=== PATIENT | male | born 1970 | race Caucasian/White ===

== ENCOUNTER → 2016-12-07 | Outpatient (CLI) | payer BC ==
[~2016-12-07] MED LIST: AMOX-355 PO; BACL20TA PO; HYDR-3454 PO; LIDO20SO20 PO; OMEP40CA36 PO; PRD20T PO; TRAM50TA2 PO
--- NOTE | 2016-12-07 14:11 | Diagnostic Imaging Report ---
PROCEDURE: MR imaging cervical spine without contrast. TECHNIQUE: Multiplanar, multisequence MR imaging of the cervical spine was performed without contrast. INDICATION: Neck pain. FINDINGS: The alignment of the cervical spine is normal. The vertebral body heights are well maintained. The posterior fossa is unremarkable. The visualized portions of the spinal cord are normal in signal intensity and morphology. At C5-C6, there is some broad-based annular bulging and bilateral uncovertebral joint hypertrophy. This results in effacement of the ventral thecal sac and mild narrowing of the AP diameter of the spinal canal to approximately 10 mm. There is also mild bilateral neuroforaminal encroachment. There is no other focal disc extrusion or spinal stenosis. Soft tissues are unremarkable. IMPRESSION: Broad-based annular bulging at C5-C6 resulting in effacement of the ventral thecal sac and narrowing of the AP diameter of the spinal canal to 10 mm. There is also some bilateral uncovertebral joint hypertrophy with mild bilateral neuroforaminal encroachment. Dictated by: Dictated on workstation # [id number]
== END ==
LOC: RAD 12:48
PROVIDERS: ATTEND Nurse Practitioner
DX: M50.20 Other cervical disc displacement, unspecified cervical region (principal); M47.812 Spondylosis without myelopathy or radiculopathy, cervical region
CPT/HCPCS: 72141

== ENCOUNTER → 2016-12-14 | Outpatient (CLI) | payer BC ==
--- NOTE | 2016-12-14 17:36 | Diagnostic Imaging Report ---
PROCEDURE: MRI left upper extremity without contrast. TECHNIQUE: Multiplanar, multisequence non contrast-enhanced MRI of the left upper extremity was accomplished. 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 Left shoulder pain. FINDINGS: There is some motion artifact present. There is mild impingement at the level of the AC joint. There is some slight abnormal signal seen within the supraspinatus tendon, consistent with tendinosis. No tear is identified. There is a small joint effusion with no fluid seen in the subacromial subdeltoid bursa. No labral tear is evident. There is no muscle mass or edema. There is no acute bony abnormality. IMPRESSION: There is mild rotator cuff impingement and tendinosis of the supraspinatus tendon. No tear is seen. Dictated by: Dictated on workstation # [id number]
== END ==
LOC: RAD 15:54
PROVIDERS: ATTEND Orthopaedic Surgery
DX: M25.512 Pain in left shoulder (principal)
CPT/HCPCS: 73221

== ENCOUNTER → 2017-06-27 | Outpatient (CLI) | payer BC ==
--- NOTE | 2017-06-27 10:30 | Diagnostic Imaging Report ---
INDICATION: Right leg pain. Right leg venous Doppler study was performed in the routine fashion with color flow Doppler and waveform analysis. FINDINGS: The right common femoral vein, superficial femoral vein, popliteal vein and visualized portion of the tibial veins show normal compressibility and venous flow patterns. There is normal augmentation. IMPRESSION: No evidence of deep vein thrombosis of the major veins of the right leg. Dictated by: Dictated on workstation # [id number]
== END ==
LOC: RAD 09:45
PROVIDERS: ATTEND Family Medicine
DX: M79.89 Other specified soft tissue disorders (principal)

== ENCOUNTER → 2017-07-13 | Outpatient (CLI) | payer BC | LOC: CARD 12:29 | PROVIDERS: ATTEND Family Medicine | DX: I10 Essential (primary) hypertension (principal); R01.1 Cardiac murmur, unspecified; R07.9 Chest pain, unspecified ==

== ENCOUNTER 2018-11-20 11:59 | Observation (INO) | payer BC ==
[~2018-11-20] VITALS: Ht 175.3 cm; Wt 120.7 kg
--- NOTE | 2018-11-20 12:10 | ED Chest Pain ---
General Stated Complaint: CP Source: patient Exam Limitations: no limitations History of Present Illness Date Seen by Provider: Nov 20, 2018 Time Seen by Provider: 12:08 Initial Comments To ER with reports of left-sided chest pain described as a pressure. He's had this constant for 3 days and had difficulty sleeping last night because of the pain. Pain is worsened with deep breathing or moving. No shortness of breath and no history of this. He sought care this morning simply because he was tired of the pain, not because it was any worse. While at urgent care he was given 4 baby aspirin and one sublingual nitroglycerin which did alleviate his pain to some degree, reducing it from 9 out of 10 to 6 out of 10. He was noted to have ST seg ment depression in leads V5 and V6. He is a nonsmoker. Nondiabetic. No personal history of heart disease that he is aware, he is unaware of any family history of heart disease. He denies any drug use. Timing/Duration: 2-3 days Severity/Quality: pressure Location: substernal Radiation: no radiation Activities at Onset: none ASA po HOME ENERGY CONSULTANT: Yes NTG SL HOME ENERGY CONSULTANT: Yes Associated Symptoms: No abdominal pain, No back pain, No diaphoresis, No nausea/vomiting, No shortness of breath Allergies and Home Medications Allergies Coded Allergies: No Known Drug Allergies (Verified , 11/15/08) Home Medications Omeprazole 40 Mg Capsule.dr, 40 MG PO BID, (Reported) Patient Home Medication List Home Medication List Reviewed: Yes Review of Systems Review of Systems Constitutional: see HPI EENTM: No Symptoms Reported Respiratory: No Symptoms Reported Cardiovascular: See HPI, Chest Pain Gastrointestinal: No Symptoms Reported Genitourinary: No Symptoms Reported Musculoskeletal: no symptoms reported Skin: no symptoms reported Psychiatric/Neurological: No Symptoms Reported Endocrine: No Symptoms Reported Hematologic/Lymphatic: No Symptoms Reported Past Uxwssik-Deostf-Znoygh Hx Patient Social History Recent Hopitalizations: Yes Seasonal Allergies Seasonal Allergies: Yes Past Medical History Appendectomy Sleep Apnea Currently Using CPAP: No (suppose to but doesn't) Reproductive Disorders: No Physical Exam Vital Signs Vital Signs - First Documented 11/20/18 11/20/18 12:04 12:12 Temp 97.2 Pulse 60 Resp 20 B/P (MAP) 128/72 (90) Pulse Ox 97 O2 Delivery Room Air FiO2 97 Capillary Refill : Height, Weight, BMI Height: 5'10.00" Weight: 257lbs. 3.0oz. 116.111957uu; 36.9 BMI Method: General Appearance: No Apparent Distress, WD/WN HEENT: PERRL/EOMI, TMs Normal Neck: Full Range of Motion, Normal Inspection Respiratory: Lungs Clear, Normal Breath Sounds, No Accessory Muscle Use, No Respiratory Distress, Other (left lateral chest is somewhat tender to palpation he states) Cardiovascular: Regular Rate, Rhythm, Normal Peripheral Pulses Gastrointestinal: Normal Bowel Sounds, Non Tender, Soft Extremity: Normal Capillary Refill, Normal Inspection Neurologic/Psychiatric: Alert, Oriented x3 Skin: Normal Color, Warm/Dry Progress/Results/Core Measures Results/Orders Lab Results Laboratory Tests Test 11/20/18 12:09 Range/Units White Blood Count 5.2 4.3-11.0 10^3/uL Red Blood Count 5.01 4.35-5.85 10^6/uL Hemoglobin 12.9 L 13.3-17.7 G/DL Hematocrit 42 40-54 % Mean Corpuscular Volume 83 80-99 FL Mean Corpuscular Hemoglobin 26 25-34 PG Mean Corpuscular Hemoglobin Concent 31 L 32-36 G/DL Red Cell Distribution Width 19.9 H 10.0-14.5 % Platelet Count 274 130-400 10^3/uL Mean Platelet Volume 11.5 H 7.4-10.4 FL Neutrophils (%) (Auto) 58 42-75 % Lymphocytes (%) (Auto) 24 12-44 % Monocytes (%) (Auto) 13 H 0-12 % Eosinophils (%) (Auto) 4 0-10 % Basophils (%) (Auto) 1 0-10 % Neutrophils # (Auto) 3.0 1.8-7.8 X 10^3 Lymphocytes # (Auto) 1.3 1.0-4.0 X 10^3 Monocytes # (Auto) 0.7 0.0-1.0 X 10^3 Eosinophils # (Auto) 0.2 0.0-0.3 10^3/uL Basophils # (Auto) 0.1 0.0-0.1 10^3/uL Prothrombin Time 14.1 12.2-14.7 SEC INR Comment 1.0 0.8-1.4 Activated Partial Thromboplast Time 26 24-35 SEC D-Dimer 0.63 H 0.00-0.49 UG/ML Sodium Level 142 135-145 MMOL/L Potassium Level 4.0 3.6-5.0 MMOL/L Chloride Level 111 H 98-107 MMOL/L Carbon Dioxide Level 22 21-32 MMOL/L Anion Gap 9 5-14 MMOL/L Blood Urea Nitrogen 11 7-18 MG/DL Creatinine 1.55 H 0.60-1.30 MG/DL Estimat Glomerular Filtration Rate 48 BUN/Creatinine Ratio 7 Glucose Level 95 70-105 MG/DL Calcium Level 8.0 L 8.5-10.1 MG/DL Corrected Calcium 8.6 8.5-10.1 MG/DL Magnesium Level 1.6 L 1.8-2.4 MG/DL Total Bilirubin 0.6 0.1-1.0 MG/DL Aspartate Amino Transf (AST/SGOT) 32 5-34 U/L Alanine Aminotransferase (ALT/SGPT) 25 0-55 U/L Alkaline Phosphatase 69 40-136 U/L Myoglobin 117.8 H 10.0-92.0 NG/ML Troponin I 0.039 H <0.028 NG/ML B-Type Natriuretic Peptide 81.9 <100.0 PG/ML Total Protein 5.8 L 6.4-8.2 GM/DL Albumin 3.3 3.2-4.5 GM/DL Lipase 127 H 8-78 U/L My Orders Orders - JOSÉ MANUEL MISHRA APRN Cbc With Automated Diff (11/20/18 12:04) Magnesium (11/20/18 12:04) Chest 1 View, Ap/Pa Only (11/20/18 12:04) Ekg Tracing (11/20/18 12:04) Cardiac Profile 1 (11/20/18 12:04) Comprehensive Metabolic Panel (11/20/18 12:04) Myoglobin Serum (11/20/18 12:04) Protime With Inr (11/20/18 12:04) Partial Thromboplastin Time (11/20/18 12:04) O2 (11/20/18 12:04) Monitor-Rhythm Ecg Trace Only (11/20/18 12:04) Lipid Panel (11/21/18 06:00) Ed Iv/Invasive Line Start (11/20/18 12:04) Lipase (11/20/18 12:04) BNP (11/20/18 12:04) Nitroglycerin 0.4 Mg Btl 25's (Nitrostat (11/20/18 12:15) Fibrin Degradation Products (11/20/18 12:16) Ct Angio Chest W (11/20/18 12:32) Morphine Injection (Morphine Injection (11/20/18 12:35) Iohexol Injection (Omnipaque 350 Mg/Ml 1 (11/20/18 12:45) Received Contrast (Hold Metformin- Contr (11/20/18 12:45) Ns (Ivpb) (Sodium Chloride 0.9% Ivpb Bag (11/20/18 12:45) Lactated Ringers (Lr 1000 Ml Iv Solution (11/20/18 12:45) Lactated Ringers (Lr 1000 Ml Iv Solution (11/20/18 12:34) Drug Screen Stat (Urine) (11/20/18 13:24) Ua Culture If Indicated (11/20/18 13:25) Metoprolol Succinate (Xl) Tab (Toprol Xl (11/20/18 13:30) Enoxaparin Injection (Lovenox Injection) (11/20/18 13:30) Medications Given in ED Current Medications Medications Dose Ordered Sig/Jessica Route Start Time Stop Time Status Last Admin Dose Admin Nitroglycerin 1 TAB Q 5 MIN X 3 NEEDED PRN SL 11/20/18 12:15 11/20/18 12:18 0.4 MG Vital Signs/I&O 11/20/18 11/20/18 12:04 12:12 Temp 97.2 Pulse 60 Resp 20 B/P (MAP) 128/72 (90) Pulse Ox 97 97 O2 Delivery Room Air FiO2 97 Progress Progress Note : Progress Note 1217-pain is 6 out of 10. Blood pressure 132/70. One sublingual nitroglycerin ordered here, he had one urgent care and 1 in the ambulance on the way here. I sent the EKG to Dr. Méndez who has reviewed it. He recommends admitting to medicine, consult him, aspirin Plavix and low-dose beta monica and Lovenox. NAME: TIM JOYCE MED REC#: [id number] PT STATUS: REG ER : 1970 PHYSICIAN: JOSÉ MANUEL MISHRA LITHOPONE CHARGER ADMIT DATE: 11/20/18/ER Draft Date of Exam:11/20/18 CHEST 1 VIEW, AP/PA ONLY PATIENT HISTORY: Chest pain, worsening. TECHNIQUE: Frontal view of the chest. COMPARISON: 09/18/2012. FINDINGS: The lung volumes are normal. No focal consolidation is seen. There is no pleural effusion or pneumothorax. The cardiac silhouette is mildly large. There is mild central vascular congestion. IMPRESSION: Mild cardiomegaly with mild central vascular congestion. Dictated on workstation # [id number] Dict: 11/20/18 1233 Trans: 11/20/18 1234 [id number] Interpreted by: AUGUST JERONIMO MD Electronically signed by: Departure Communication (Admissions) Time/Spoke to Admitting Phy: 13:[address] Francois, will admit observation and consult Dr méndez. 1237-chest pain is now gone unless he moves, this is after the administration of 3 sublingual nitroglycerin.. He began laughing during my conversation with him which caused him intense pain in the left lateral chest wall. I will order a dose of morphine 5 mg IV as his d-dimer is elevated and he needs to be sent to CT scan so there will be some movement and normal. Impression Primary Impression: Chest wall pain Disposition: ADMITTED INPATIENT Condition: Stable Admissions Decision to Admit Reason: Admit from ER (General) Decision to Admit/Date: Nov 20, 2018 Time/Decision to Admit Time: 12:39 Departure-Patient Inst. Referrals: KELLIE FRANCOIS DO (PCP/Family) Primary Care Physician JOSÉ MANUEL MISHRA APRN Nov 20, 2018 12:10
[2018-11-20 12:17] LABS: BASOPHILS # (AUTO) 0.1 10^3/uL (0.0-0.1); BASOPHILS % (AUTO) 1 % (0-10); EOSINOPHILS # (AUTO) 0.2 10^3/uL (0.0-0.3); EOSINOPHILS % (AUTO) 4 % (0-10); HEMATOCRIT 42 % (40-54); HEMOGLOBIN 12.9 G/DL (13.3-17.7); LYMPHOCYTES # (AUTO) 1.3 X 10^3 (1.0-4.0); LYMPHOCYTES % (AUTO) 24 % (12-44); MEAN CORPUSCULAR HEMOGLOBIN 26 PG (25-34); MEAN CORPUSCULAR HGB CONC 31 G/DL (32-36); MEAN CORPUSCULAR VOLUME 83 FL (80-99); MEAN PLATELET VOLUME 11.5 FL (7.4-10.4); MONOCYTES # (AUTO) 0.7 X 10^3 (0.0-1.0); MONOCYTES % (AUTO) 13 % (0-12); NEUTROPHILS % (AUTO) 58 % (42-75); PLATELET COUNT 274 10^3/uL (130-400); RED CELL DISTRIBUTION WIDTH 19.9 % (10.0-14.5); WHITE BLOOD COUNT 5.2 10^3/uL (4.3-11.0)
[2018-11-20] MEDS: NITROGLYCERIN 0.4 MG SL TABS BTL 25'S SL PRN (12:18)
[2018-11-20 12:27] LABS: PROTHROMBIN TIME PATIENT 14.1 SEC (12.2-14.7)
[2018-11-20] MEDS ORDERED: LACTATED RINGERS 1,000 ML IV ONE (12:34)
[2018-11-20 12:35] LABS: ALBUMIN 3.3 GM/DL (3.2-4.5); BILIRUBIN,TOTAL 0.6 MG/DL (0.1-1.0); CREATININE SERUM 1.55 MG/DL (0.60-1.30); MAGNESIUM 1.6 MG/DL (1.8-2.4); TOTAL PROTEIN 5.8 GM/DL (6.4-8.2)
[2018-11-20] MEDS ORDERED: morphine INJ 10 MG/ML 1ML (SYR OR VIAL) IVP STA (12:35)
--- NOTE | 2018-11-20 12:35 | Diagnostic Imaging Report ---
PATIENT HISTORY: Chest pain, worsening. TECHNIQUE: Frontal view of the chest. COMPARISON: 09/18/2012. FINDINGS: The lung volumes are normal. No focal consolidation is seen. There is no pleural effusion or pneumothorax. The cardiac silhouette is mildly large. There is mild central vascular congestion. IMPRESSION: Mild cardiomegaly with mild central vascular congestion. Dictated by: Dictated on workstation # [id number]
[2018-11-20] MEDS ORDERED: NS 100 ML (IVPB) BAG IV ONE (12:45)
[2018-11-20] MEDS ORDERED: LACTATED RINGERS 1,000 ML IV SCH (12:45)
[2018-11-20] MEDS ORDERED: HOLD METFORMIN - RECEIVED CONTRAST 20 ML VIAL IV SCH (12:45)
[2018-11-20] MEDS ORDERED: IOHEXOL 350 MG/ML 150 ML (OMNIPAQUE 350) VIAL IV ONE (12:45)
--- NOTE | 2018-11-20 13:18 | Diagnostic Imaging Report ---
PROCEDURE: CT angiography of the chest with contrast. TECHNIQUE: Multiple contiguous axial images were obtained through the chest after uneventful bolus administration of intravenous contrast. 2D reconstructed CTA MIP acquisitions were also performed. Auto Exposure Controls were utilized during the CT exam to meet ALARA standards for radiation dose reduction. INDICATION: Left-sided chest pain for three to four days. Lump removed from the left chest years ago. COMPARISON: 09/10/2007. FINDINGS: The pulmonary arteries are diagnostic to the segmental level. No filling defects are seen to indicate pulmonary embolus. The heart is upper normal in size. There is no pericardial effusion. The ascending aorta demonstrates mild aneurysmal dilatation measuring 4.4 x 4.4 cm. There is no dissection or extravasation of contrast. The main pulmonary artery is borderline prominent. No mediastinal adenopathy is seen. The lungs demonstrate dependent atelectasis. There is no pleural effusion or pneumothorax. No focal consolidation is seen. No central endobronchial lesions are seen. No acute osseous abnormality is seen. Imaged portions of the upper abdomen demonstrate no acute abnormality. IMPRESSION: 1. No pulmonary embolus. 2. Mild dependent atelectasis with no acute pulmonary abnormality seen. 3. Tortuosity of the aorta with aneurysmal dilatation of the ascending aorta. No extravasation of contrast or dissection is seen. Dictated by: Dictated on workstation # [id number]
[2018-11-20] MEDS ORDERED: ENOXAPARIN 60 MG/0.6 ML (LOVENOX) SYR SC ONE (13:30)
[2018-11-20 14:08] LABS: BILIRUBIN,URINE NEGATIVE (NEGATIVE); CLARITY,URINE CLEAR; COLOR,URINE YELLOW; GLUCOSE, URINE (UA) NEGATIVE (NEGATIVE); KETONES,URINE NEGATIVE (NEGATIVE); LEUKOCYTE ESTERASE ,URINE NEGATIVE (NEGATIVE); NITRITE,URINE NEGATIVE (NEGATIVE); PH,URINE 6.5 (5-9); PROTEIN,URINE NEGATIVE (NEGATIVE); UROBILINOGEN,URINE NORMAL (NORMAL)
[2018-11-20 14:19] LABS: BACTERIA,URINE NEGATIVE /HPF; SQUAMOUS EPITHELIAL CELL,UR RARE /HPF
[2018-11-20 14:21] LABS: AMPHETAMINE SCREEN, URINE NEGATIVE (NEGATIVE); BARBITURATE SCREEN URINE NEGATIVE (NEGATIVE); BENZODIAZEPINES SCREEN URINE NEGATIVE (NEGATIVE); CANNABINOID SCREEN, URINE NEGATIVE (NEGATIVE); COCAINE SCREEN URINE NEGATIVE (NEGATIVE); METHADONE STAT NEGATIVE (NEGATIVE); METHAMPHETAMINE SCREEN URINE S NEGATIVE (NEGATIVE); OPIATE SCREEN URINE POSITIVE (NEGATIVE); OXYCODONE STAT NEGATIVE (NEGATIVE); PROPOXYPHENE STAT NEGATIVE (NEGATIVE); TRICYCLIC ANTIDEPRESSANTS SCRE NEGATIVE (NEGATIVE)
[2018-11-20 14:35] VITALS: BP 129/79
[2018-11-20] MEDS ORDERED: ENOXAPARIN 300 MG/3 ML (LOVENOX) MULTI-DOSE VIAL SQ SCH (15:00)
[2018-11-20] MEDS ORDERED: CATHETER FLUSH 10 ML SYR IV PRN (15:00)
[2018-11-20] MEDS ORDERED: HYDR-3584 PO (15:04)
[2018-11-20] MEDS ORDERED: OMEP40CA36 PO (15:04)
[2018-11-20] MEDS ORDERED: THYR90TA PO (15:04)
[2018-11-20] MEDS ORDERED: DOXY50CA2 PO (15:04)
[2018-11-20] MEDS ORDERED: METO-395 PO (15:04)
[2018-11-20] MEDS ORDERED: IRBE150T26 PO (15:04)
--- NOTE | 2018-11-20 15:18 | NUR ---
TIM JOYCE admitted to room 433-1, with an admitting diagnosis of CHEST PAIN, on 11/20/18 from [facility], accompanied by ER STAFF.TIM JOYCE introduced to surroundings, call light, bed controls, phone, TV, temperature control, lights, meal times, smoking policy, visitor policy, side rail policy, bathrooms and showers. Patient Rights given to patient in the handbook. TIM JOYCE verbalizes understanding that [facility] is not responsible for the loss or damage to any personal effects or valuables that are kept in the patients posession during their hospitalization. The following Patient Care Plans were discussed with the PT : Discharge Planning, PAIN, CARDIOPULM TISSUE PERF, ACT INTOL, AND ANXIETY . TIM JOYCE verbalizes understanding of Interdisciplinary Patient Education. Patient and/or family were informed about the Rapid Response Team and its purpose. PT CAME TO FLOOR FROM W/ IN
[2018-11-20] MEDS ORDERED: NAPR220T66 PO (15:22)
[2018-11-20] MEDS ORDERED: CNC1KV IM (15:22)
[2018-11-20] MEDS ORDERED: TEST200V21 IM (15:22)
[2018-11-20 15:25] VITALS: BP 129/79
[2018-11-20] MEDS ORDERED: VALA500T PO (15:31)
[2018-11-20] MEDS ORDERED: GUAI-365 PO (15:31)
[2018-11-20] MEDS ORDERED: ZOLP5TAB7 PO (15:31)
[2018-11-20] MEDS ORDERED: ANAS1TAB7 PO (15:31)
--- NOTE | 2018-11-20 15:36 | NUR ---
SPOKE WITH PATIENT ABOUT HIS MEDS AND ALSO WENT THROUGH EXTERNAL MED HISTORY TO COMPLETE MED REC. HANNAH 5MG- 1 QHS PRN. IT DID NOT SHOW UP ON THE EXTERNAL MED HISTORY, HE ADMITS IT HAS BEEN A LONG TIME SINCE HE HAS FILLED IT AND I CALLED [facility] AND THEY HAD NO RECORD OF IT ANY LONGER. OTC MEDICATIONS: NAPROXEN 220MG - 1 T PRN Addendum: 11/20/18 at 1607 by WALLY ALDANA drapery installer ACCORDING TO KTRA ZOLPIDEM WAS LAST FILLED 2015
[2018-11-20 16:50] VITALS: BP 136/89
[2018-11-20] MEDS: MAGNESIUM OXIDE (MAG-OX)400 MG TAB PO SCH (17:32)
[2018-11-20] MEDS ORDERED: PANTOPRAZOLE 40 MG (PROTONIX) TAB PO NR (18:15)
[2018-11-20] MEDS ORDERED: ACETAMINOPHEN 500 MG TAB (TYLENOL) PO NR (18:15)
[2018-11-20] MEDS ORDERED: ACETAMINOPHEN 325 MG TABLET PO PRN (18:15)
[2018-11-20] MEDS ORDERED: ACETAMINOPHEN 500 MG TAB (TYLENOL) PO PRN (18:15)
--- NOTE | 2018-11-20 19:10 | History & Physicial ---
History of Present Illness History of Present Illness Reason for visit/HPI This is a 48 year old male who presented from the Urgent Care to the emergency room with left sided chest pain. He stated the pain had been ongoing for 3 days and was left sided and described it as a pressure. The pain is made worse with deep breaths and movement. He was given aspirin as well as nitro SL at the Urgent Care which did slightly improve his pain. He was given nitro SL x3 upon arrival in the emergency room which almost completely resolved his pain. His EKG showed some mild S-T segment depression in leads V5 and V6 but his cardiac enzymes were negative. A CT angiogram was done which showed no PE but did show some aneurysmal dilation in the ascending aorta. Due to his presentation as well as cardiac risk factors and improvement of his chest pain with nitro, it was decided to admit him for observation as well as for cardiac consult. Date of Admission Nov 20, 2018 at 13:27 Date Seen by a Provider: Nov 20, 2018 Time Seen by a Provider: 19:11 I consulted on this patient on 11/20/18 19:05 Attending Physician Debbi Francois DO Admitting Physician Debbi Francois DO Consult Allergies and Home Medications Allergies Coded Allergies: No Known Drug Allergies (Verified , 11/15/08) Home Medications Anastrozole 1 Mg Tablet, 1 MG PO MoWeFr, (Reported) Cyanocobalamin 1,000 Mcg/Ml Inj, 1 ML IM every 2 weeks, (Reported) Doxycycline Hyclate 50 Mg Capsule, 50 MG PO HS, (Reported) Guaifenesin/Pseudoephedrne HCl 1 Each Tab.er.12h, 1 TAB PO BID PRN for CONGESTION, (Reported) Irbesartan 150 Mg Tablet, 150 MG PO BID, (Reported) Metoprolol Succinate 100 Mg Tab.er.24h, 100 MG PO BID, (Reported) Naproxen Sodium 220 Mg Tablet, 220 MG PO Q8H PRN for PAIN-MILD, (Reported) Omeprazole 40 Mg Capsule.dr, 40 MG PO BID, (Reported) Testosterone Cypionate 200 Mg/1 Ml Vial, 1 ML IM weekly, (Reported) Thyroid,Pork 90 Mg Tablet, 90 MG PO DAILY, (Reported) Valacyclovir HCl 500 Mg Tablet, 500 MG PO DAILY, (Reported) Zolpidem Tartrate 5 Mg Tablet, 5 MG PO HS PRN for INSOMNIA, (Reported) Patient Home Medication List Home Medication List Reviewed: Yes Past Apgkmam-Lzbjit-Cgqgwy Hx Patient Social History Marrital Status: Alcohol Use: Denies Use Recreational Drug Use: No Smoking Status: Never a Smoker Physical Abuse Screen: No Sexual Abuse: No Recent Foreign Travel: Yes Contact w/other who traveled: No Recent Hopitalizations: Yes Recent Infectious Disease Expo: No Seasonal Allergies Seasonal Allergies: Yes Surgeries Yes (knee scoped, l hand repair, r eye, hernia repair, deviated septume) Appendectomy Respiratory Yes Currently Using CPAP: No (suppose to but doesn't) Cardiovascular No Neurological No Reproductive System Hx Reproductive Disorders: No Gastrointestinal Yes (rectal bleeding -- HERNIA REPAIR ) Gastroesophageal Reflux Musculoskeletal Yes (KNEE SURG ) Endocrine History of Endocrine Disorders: No Cancer No Psychosocial History of Psychiatric Problem: Yes (horrible fear of needle) Integumentary History of Skin or Integumenta: No Blood Transfusions History of Blood Disorders: No Review of Systems Constitutional: No no symptoms reported, No see HPI, No chills, No diaphoresis, No dizziness, No fever, No malaise, No weakness, No weight gain, No weight loss, No other EENTM: No see HPI, No no symptoms reported, No ear discharge, No hearing loss, No ear pain, No blurred vision, No double vision, No eye pain, No tearing, No vision loss, No dental problems, No hoarseness, No mouth pain, No mouth swelling, No epistaxis, No nose congestion, No nose pain, No throat pain, No throat swelling, No other Respiratory: No no symptoms reported, No see HPI, No cough, No dyspnea on exertion, No hemoptysis, No orthopnea, No phlegm, No short of breath, No stridor, No wheezing, No other Cardiovascular: chest pain Gastrointestinal: No RUQ, No LUQ, No RLQ, No LLQ, No no symptoms reported, No see HPI, No abdominal pain, No constipation, No diarrhea, No dysphagia, No hematemesis, No heartburn, No jaundice, No loss of appetite, No melena, No nausea, No vomiting, No other Genitourinary: No no symptoms reported, No see HPI, No decreased output, No discharge, No dysuria, No frequency, No hematuria, No hesitancy, No incontinence, No nocturia, No pain, No other Musculoskeletal: No no symptoms reported, No see HPI, No back pain, No gout, No joint pain, No joint swelling, No muscle pain, No muscle stiffness, No muscle cramps, No muscle twitching, No muscle weakness, No neck pain, No other Skin: No no symptoms reported, No see HPI, No change in color, No change in hair/nails, No dryness, No hx of skin cancer, No lesions, No lumps, No pruritus, No rash, No other Psychiatric/Neurological: Denies No Symptoms Reported, Denies See HPI, Denies Anxiety, Denies Depressed, Denies Emotional Problems, Denies Headache, Denies Numbness, Denies Paresthesia, Denies Pre-Existing Deficit, Denies Seizure, Denies Tingling, Denies Tremors, Denies Weakness, Denies Other Physical Exam Vital Signs Vital Signs - First Documented 11/20/18 11/20/18 12:04 12:12 Temp 97.2 Pulse 60 Resp 20 B/P (MAP) 128/72 (90) Pulse Ox 97 O2 Delivery Room Air FiO2 97 Capillary Refill : Less Than 3 Seconds Height, Weight, BMI Height: 5'9.00" Weight: 268lbs. 0.0oz. 121.359219oq; 49.0 BMI Method:Stated General Appearance: No Apparent Distress HEENT: Normal ENT Inspection Neck: Supple Respiratory: Lungs Clear Cardiovascular: Regular Rate, Rhythm, Gallop/S4 Gastrointestinal: Normal Bowel Sounds, Non Tender, Soft Back: No CVA Tenderness Extremity: Non Tender, No Calf Tenderness, No Pedal Edema Neurologic/Psychiatric: Alert, Oriented x3 Skin: Warm/Dry Comments Laboratory Tests 11/20/18 12:09: White Blood Count 5.2, Red Blood Count 5.01, Hemoglobin 12.9L, Hematocrit 42, Mean Corpuscular Volume 83, Mean Corpuscular Hemoglobin 26, Mean Corpuscular Hemoglobin Concent 31L, Red Cell Distribution Width 19.9H, Platelet Count 274, Mean Platelet Volume 11.5H, Neutrophils (%) (Auto) 58, Lymphocytes (%) (Auto) 24, Monocytes (%) (Auto) 13H, Eosinophils (%) (Auto) 4, Basophils (%) (Auto) 1, Neutrophils # (Auto) 3.0, Lymphocytes # (Auto) 1.3, Monocytes # (Auto) 0.7, Eosinophils # (Auto) 0.2, Basophils # (Auto) 0.1, Prothrombin Time 14.1, INR Comment 1.0, Activated Partial Thromboplast Time 26, D-Dimer 0.63H, Sodium Level 142, Potassium Level 4.0, Chloride Level 111H, Carbon Dioxide Level 22, Anion Gap 9, Blood Urea Nitrogen 11, Creatinine 1.55H, Estimat Glomerular Filtration Rate 48, BUN/Creatinine Ratio 7, Glucose Level 95, Calcium Level 8.0L, Corrected Calcium 8.6, Magnesium Level 1.6L, Total Bilirubin 0.6, Aspartate Amino Transf (AST/SGOT) 32, Alanine Aminotransferase (ALT/SGPT) 25, Alkaline Phosphatase 69, Myoglobin 117.8H, Troponin I 0.039H, B-Type Natriuretic Peptide 81.9, Total Protein 5.8L, Albumin 3.3, Lipase 127H 11/20/18 13:57: Urine Color YELLOW, Urine Clarity CLEAR, Urine pH 6.5, Urine Specific Jay 1.005L, Urine Protein NEGATIVE, Urine Glucose (UA) NEGATIVE, Urine Ketones NEGATIVE, Urine Nitrite NEGATIVE, Urine Bilirubin NEGATIVE, Urine Urobilinogen NORMAL, Urine Leukocyte Esterase NEGATIVE, Urine RBC (Auto) NEGATIVE, Urine RBC NONE, Urine WBC NONE, Urine Squamous Epithelial Cells RARE, Urine Crystals NONE, Urine Bacteria NEGATIVE, Urine Casts NONE, Urine Mucus NEGATIVE, Urine Culture Indicated NO, Urine Opiates Screen POSITIVEH, Urine Oxycodone Screen NEGATIVE, Urine Methadone Screen NEGATIVE, Urine Propoxyphene Screen NEGATIVE, Urine Barbiturates Screen NEGATIVE, Ur Tricyclic Antidepressants Screen NEGATIVE, Urine Phencyclidine Screen NEGATIVE, Urine Amphetamines Screen NEGATIVE, Urine Methamphetamines Screen NEGATIVE, Urine Benzodiazepines Screen NEGATIVE, Urine Cocaine Screen NEGATIVE, Urine Cannabinoids Screen NEGATIVE 11/20/18 18:05: Troponin I < 0.028 Assessment/Plan Assessment and Plan 1. Chest Pain, uncertain etiology--relieved with nitro, admit for telemetry, repeat cardiac enzymes and cardiology evaluation 2. Hypertension--resume metoprolol and monitor BP 3. Aneurysmal Dilation of Ascending Aorta--will need to be monitored serially 4. GERD--start protonix 5. Renal Insufficiency--hydrate and monitor Cr Admission Diagnosis Admission Status: Observation Clinical Quality Measures AMI/AHF: ASA po Prior to arrival: Yes DVT/VTE Risk/Contraindication: Risk Factor Score Per Nursin RFS Level Per Nursing on Admit: 1=Low/No VTE PPX DEBBI FRANCOIS DO Nov 20, 2018 19:10
--- NOTE | 2018-11-20 19:11 | Consultation-Cardiology ---
HPI-Cardiology Cardiology Consultation: Date of Consultation 11/20/18 Time Seen by a Provider: 17:50 Date of Admission Attending Physician Debbi Francois DO Admitting Physician Dbebi Francois DO Consulting Physician ARTEMIO COATS MD, MA, FACP, FACC, FSCAI, CCDS Attending: Dr Francois HPI: Chief Complaint: CC: Chest pain HPI 48 yo man with 3-4 days of chest pain: located at a point source under the L breast, reproducible with palpation, continuous but waxing and waning, w/o radiation, worse with cough, w/o associated features, mild to mod in intensity, varying from sharp to dull. Does not report shortness of breath. Lifts weights regularly. Denies palp or leg swelling. Review of Systems-Cardiology Review of Systems Constitutional: No weight loss, No weight gain Eyes: No vision change Ears/Nose/Throat: No ear discharge, No nasal drainage, No recent hearing loss Respiratory: As described under HPI Cardiovascular: As described under HPI Gastrointestinal: No diarrhea, No nausea, No vomiting Genitourinary: No dysuria, No hematuria, No urine frequency changes Musculoskeletal: No back pain Skin: No rash, No ulcerations Psychiatric/Neurological: No seizure, No focal weakness, No syncope Hematologic: No bleeding abnormalities [id number]-Ugvruw Hx Patient Social History Alcohol Use: Denies Use Recreational Drug Use: No Smoking Status: Never a Smoker Recent Foreign Travel: Yes Recent Infectious Disease Expo: No Physical Abuse Screen: No Sexual Abuse: No Past Medical History PMH As described under Assessment. Family Medical History Family Medical History: No fam h/o early CAD or SCD reported Allergies and Home Medications Allergies Coded Allergies: No Known Drug Allergies (Verified , 11/15/08) Home Medications Anastrozole 1 Mg Tablet, 1 MG PO MoWeFr, (Reported) Cyanocobalamin 1,000 Mcg/Ml Inj, 1 ML IM every 2 weeks, (Reported) Doxycycline Hyclate 50 Mg Capsule, 50 MG PO HS, (Reported) Guaifenesin/Pseudoephedrne HCl 1 Each Tab.er.12h, 1 TAB PO BID PRN for CONGESTION, (Reported) Irbesartan 150 Mg Tablet, 150 MG PO BID, (Reported) Metoprolol Succinate 100 Mg Tab.er.24h, 100 MG PO BID, (Reported) Naproxen Sodium 220 Mg Tablet, 220 MG PO Q8H PRN for PAIN-MILD, (Reported) Omeprazole 40 Mg Capsule.dr, 40 MG PO BID, (Reported) Testosterone Cypionate 200 Mg/1 Ml Vial, 1 ML IM weekly, (Reported) Thyroid,Pork 90 Mg Tablet, 90 MG PO DAILY, (Reported) Valacyclovir HCl 500 Mg Tablet, 500 MG PO DAILY, (Reported) Zolpidem Tartrate 5 Mg Tablet, 5 MG PO HS PRN for INSOMNIA, (Reported) Patient Home Medication List Home Medication List Reviewed: Yes Physical Exam-Cardiology Physical Exam Vital Signs/I&O 11/20/18 11/20/18 11/20/18 11/20/18 12:04 12:12 14:21 14:35 Temp 97.2 97.2 97.0 Pulse 60 64 64 Resp 20 20 8 B/P (MAP) 128/72 (90) 107/67 (80) 129/79 (96) Pulse Ox 97 97 98 97 O2 Delivery Room Air Room Air FiO2 97 11/20/18 11/20/18 11/20/18 11/20/18 15:18 15:25 15:26 16:00 Temp 97.0 Pulse 64 68 Resp 18 B/P (MAP) 129/79 Pulse Ox 97 97 97 O2 Delivery Room Air Room Air Room Air FiO2 97 97 11/20/18 16:50 Temp 99.4 Pulse 70 Resp 16 B/P (MAP) 136/89 (105) Pulse Ox 98 Capillary Refill : Less Than 3 Seconds Constitutional: AAO x 3, well-developed, well-nourished HEENT: PERRL, EOMI; No xanthelasmas are seen Neck: carotid pulses are 2 + bilaterally, with good upstrokes Respiratory: No accessory muscle use; lungs clear to percussion, lungs clear to auscultation Cardiovascular: regular rate-rhythm, S1 and S2, systolic murmur (faint PRINCE at card base), other (Chest pain reproducible with palpation in the L sub-mammary area) Gastrointestinal: No tender; soft; No guarding, No rebound; audible bowel sounds Extremities: No clubbing, No cyanosis, No significant edema Neurologic/Psychiatric: oriented x 3, grossly intact, power is 5/5 both on sides Skin: No rash on exposed areas, No ulcerations on exposed areas Data Review Labs Laboratory Tests 11/20/18 12:09: White Blood Count 5.2, Red Blood Count 5.01, Hemoglobin 12.9L, Hematocrit 42, Mean Corpuscular Volume 83, Mean Corpuscular Hemoglobin 26, Mean Corpuscular Hemoglobin Concent 31L, Red Cell Distribution Width 19.9H, Platelet Count 274, Mean Platelet Volume 11.5H, Neutrophils (%) (Auto) 58, Lymphocytes (%) (Auto) 24, Monocytes (%) (Auto) 13H, Eosinophils (%) (Auto) 4, Basophils (%) (Auto) 1, Neutrophils # (Auto) 3.0, Lymphocytes # (Auto) 1.3, Monocytes # (Auto) 0.7, Eosinophils # (Auto) 0.2, Basophils # (Auto) 0.1, Prothrombin Time 14.1, INR Comment 1.0, Activated Partial Thromboplast Time 26, D-Dimer 0.63H, Sodium Level 142, Potassium Level 4.0, Chloride Level 111H, Carbon Dioxide Level 22, Anion Gap 9, Blood Urea Nitrogen 11, Creatinine 1.55H, Estimat Glomerular Filtration Rate 48, BUN/Creatinine Ratio 7, Glucose Level 95, Calcium Level 8.0L, Corrected Calcium 8.6, Magnesium Level 1.6L, Total Bilirubin 0.6, Aspartate Amino Transf (AST/SGOT) 32, Alanine Aminotransferase (ALT/SGPT) 25, Alkaline Phosphatase 69, Myoglobin 117.8H, Troponin I 0.039H, B-Type Natriuretic Peptide 81.9, Total Protein 5.8L, Albumin 3.3, Lipase 127H 11/20/18 13:57: Urine Color YELLOW, Urine Clarity CLEAR, Urine pH 6.5, Urine Specific [place] 1.005L, Urine Protein NEGATIVE, Urine Glucose (UA) NEGATIVE, Urine Ketones NEGATIVE, Urine Nitrite NEGATIVE, Urine Bilirubin NEGATIVE, Urine Urobilinogen NORMAL, Urine Leukocyte Esterase NEGATIVE, Urine RBC (Auto) NEGATIVE, Urine RBC NONE, Urine WBC NONE, Urine Squamous Epithelial Cells RARE, Urine Crystals NONE, Urine Bacteria NEGATIVE, Urine Casts NONE, Urine Mucus NEGATIVE, Urine Culture Indicated NO, Urine Opiates Screen POSITIVEH, Urine Oxycodone Screen NEGATIVE, Urine Methadone Screen NEGATIVE, Urine Propoxyphene Screen NEGATIVE, Urine Barbiturates Screen NEGATIVE, Ur Tricyclic Antidepressants Screen NEGATIVE, Urine Phencyclidine Screen NEGATIVE, Urine Amphetamines Screen NEGATIVE, Urine Methamphetamines Screen NEGATIVE, Urine Benzodiazepines Screen NEGATIVE, Urine Cocaine Screen NEGATIVE, Urine Cannabinoids Screen NEGATIVE 11/20/18 18:05: Troponin I < 0.028 Laboratory Tests 11/20/18 12:09 A/P-Cardiology Assessment/Admission Diagnosis Chest pain of undetermined etiology, reproducible with palpation over site in the L inframammary area Hypertension, by history CKD-3 Hypomagnesemia Discussion and Recomendations * Serial cardiac enzymes and ECG * Echo * Replenish lytes * Further recs based on hosp course Clinical Quality Measures AMI/AHF: ASA po Prior to arrival: Yes DVT/VTE Risk/Contraindication: Risk Factor Score Per Nursin RFS Level Per Nursing on Admit: 1=Low/No VTE PPX ARTEMIO COATS MD FACP FAC CCDS Nov 20, 2018 19:11
[2018-11-20] MEDS ORDERED: PATIENT MAY USE OWN MEDS, ALL MC SCH (19:15)
[2018-11-20] MEDS ORDERED: MAGNESIUM 1 GM/100 ML IVPB 100 ML IV ONE (19:30)
[2018-11-20] MEDS ORDERED: HYDROcodone/APAP 5 MG/325 MG (LORTAB) TAB PO NR (20:00)
[2018-11-20] MEDS ORDERED: TEMAZEPAM 15 MG (RESTORIL) CAP PO PRN (20:15)
[2018-11-20 20:20] VITALS: BP 134/79
[2018-11-20] MEDS: meTOprolol SUCCINATE 100 MG (TOPROL XL) TAB PO SCH (20:50)
[2018-11-20] MEDS: CATHETER FLUSH 10 ML SYR IV SCH (22:00)
[2018-11-21] VITALS (8 sets, daily range): BP systolic 118–140; BP diastolic 73–95
[2018-11-21] MEDS ORDERED: ENOXAPARIN 300 MG/3 ML (LOVENOX) MULTI-DOSE VIAL SQ SCH (01:30)
[2018-11-21] MEDS: MAGNESIUM OXIDE (MAG-OX)400 MG TAB PO SCH ×2 (05:43→17:50)
[2018-11-21] MEDS: PANTOPRAZOLE 40 MG (PROTONIX) TAB PO SCH (05:43)
[2018-11-21] MEDS: THYROID (ARMOUR) 60 MG TABLET PO SCH (05:44)
[2018-11-21] MEDS: NITROGLYCERIN 0.4 MG SL TABS BTL 25'S SL PRN (05:54)
[2018-11-21 06:00] LABS: BASOPHILS # (AUTO) 0.1 10^3/uL (0.0-0.1); BASOPHILS % (AUTO) 1 % (0-10); EOSINOPHILS # (AUTO) 0.2 10^3/uL (0.0-0.3); EOSINOPHILS % (AUTO) 4 % (0-10); HEMATOCRIT 42 % (40-54); HEMOGLOBIN 12.9 G/DL (13.3-17.7); LYMPHOCYTES # (AUTO) 1.4 X 10^3 (1.0-4.0); LYMPHOCYTES % (AUTO) 34 % (12-44); MEAN CORPUSCULAR HEMOGLOBIN 25 PG (25-34); MEAN CORPUSCULAR HGB CONC 31 G/DL (32-36); MEAN CORPUSCULAR VOLUME 83 FL (80-99); MONOCYTES # (AUTO) 0.5 X 10^3 (0.0-1.0); MONOCYTES % (AUTO) 13 % (0-12); NEUTROPHILS % (AUTO) 48 % (42-75); PLATELET COUNT 204 10^3/uL (130-400); RED CELL DISTRIBUTION WIDTH 19.6 % (10.0-14.5); WHITE BLOOD COUNT 4.2 10^3/uL (4.3-11.0)
[2018-11-21] MEDS: CATHETER FLUSH 10 ML SYR IV SCH ×3 (06:00→22:49)
--- NOTE | 2018-11-21 06:21 | NUR ---
At 0545 Patient c/o chest pain/soreness under left breast area/rib and rates at a 9. Reports that it feels same as when was admitted. VS 135/94 -70-19, sat 97%. 1 nitro sl given at 0551. At 0557 VS 123/73-68-19, rates pain at a 4. EKG obtained and Dr. Méndez notified. Currently resting and no further c/o CP.
[2018-11-21 06:27] LABS: ALANINE AMINOTRANSFERASE 22 U/L (0-55); ALBUMIN 3.1 GM/DL (3.2-4.5); ALKALINE PHOSPHATASE 66 U/L (40-136); BILIRUBIN,TOTAL 0.5 MG/DL (0.1-1.0); BUN/CREATININE RATIO 5; CARBON DIOXIDE 25 MMOL/L (21-32); CHLORIDE 106 MMOL/L (98-107); CHOLESTEROL 130 MG/DL (< 200); CREATININE SERUM 1.53 MG/DL (0.60-1.30); GFR ESTIMATED 49; GLUCOSE 81 MG/DL (70-105); HDL CHOLESTEROL < 15 MG/DL (40-60); MAGNESIUM 1.7 MG/DL (1.8-2.4); POTASSIUM 3.8 MMOL/L (3.6-5.0); SODIUM 140 MMOL/L (135-145); TOTAL PROTEIN 5.5 GM/DL (6.4-8.2); TRIGLYCERIDES 117 MG/DL (<150); VLDL CHOLESTEROL 23 MG/DL (5-40)
[2018-11-21] MEDS: meTOprolol SUCCINATE 100 MG (TOPROL XL) TAB PO SCH ×2 (08:47→20:50)
[2018-11-21] MEDS ORDERED: THYROID PORK 90 MG PO SCH (09:00)
--- NOTE | 2018-11-21 11:39 | Progress Note-Hospitalist ---
Subjective HPI/CC On Admission Date Seen by Provider: Nov 21, 2018 Time Seen by Provider: 11:00 Subjective/Events-last exam Patient not experiencing any more chest pain Awaiting echocardiogram Awaiting Dr. Méndez consultation Checked meds and labs Review of Systems General: Fatigue Objective Exam Vital Signs Vital Signs Date Time Temp Pulse Resp B/P (MAP) Pulse Ox O2 Delivery O2 Flow Rate FiO2 11/21/18 09:46 Room Air 11/21/18 08:00 98.2 66 18 140/85 (103) 99 11/21/18 05:30 97 Capillary Refill : Less Than 3 Seconds General Appearance: No Apparent Distress, WD/WN, Chronically ill, Obese HEENT: Normal ENT Inspection Neck: Supple Respiratory: Chest Non Tender, Lungs Clear, Normal Breath Sounds, No Accessory Muscle Use, No Respiratory Distress Cardiovascular: Regular Rate, Rhythm, No Edema, Gallop/S4 Gastrointestinal: Normal Bowel Sounds, Non Tender, Soft Back: No CVA Tenderness Extremity: Non Tender, No Calf Tenderness, No Pedal Edema Neurologic/Psychiatric: Alert, Oriented x3, No Motor/Sensory Deficits, Normal 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 Assessment/Plan Assessment and Plan Assess & Plan/Chief Complaint Assessment: Chest pain Chronic renal insufficiency MONSERRAT noncompliant with CPAP Hypertension Plan: Cardiology for disposition check echo Diagnosis/Problems Diagnosis/Problems (1) Chest wall pain Status: Acute Clinical Quality Measures AMI/AHF: ASA po Prior to arrival: Yes DVT/VTE Risk/Contraindication: Risk Factor Score Per Nursin RFS Level Per Nursing on Admit: 1=Low/No VTE PPX JULIANA HELLER DO Nov 21, 2018 11:39
[2018-11-21] MEDS ORDERED: REGADENOSON 0.4 MG/5 ML SYR (LEXISCAN) IV ONE (14:45)
--- NOTE | 2018-11-21 14:46 | NUR ---
[facility] CHEMICAL STRESS TEST ORDERED, RN CLINICAL QUALITY NOTIFIED, ADDITION SHEET FILLED OUT AND FAXED, PATIENT INSTRUCTED ON BEING NPO AFTER MIDNIGHT
--- NOTE | 2018-11-21 15:55 | Progress Note-Cardiology ---
Cardiology SOAP Progress Note Subjective: Focus of pain under the L breast still there, but better No palp or syncope Chronic, moderate shortness of breath with exertion Objective: I&O/Vital Signs 11/21/18 11/21/18 11/21/18 11/21/18 04:00 04:00 05:30 05:49 Temp 98.6 Pulse 58 70 Resp 18 21 B/P (MAP) 118/74 (89) 135/95 (108) Pulse Ox 97 97 97 97 O2 Delivery Room Air Room Air Room Air Room Air FiO2 97 97 11/21/18 11/21/18 11/21/18 11/21/18 05:57 07:00 08:00 08:00 Temp 98.2 Pulse 68 70 66 Resp 19 18 B/P (MAP) 123/73 (90) 140/85 (103) Pulse Ox 97 99 O2 Delivery Room Air 11/21/18 11/21/18 11/21/18 11/21/18 09:46 12:00 12:50 12:53 Temp 99.1 Pulse 60 67 Resp 18 B/P (MAP) 138/88 (105) Pulse Ox 98 O2 Delivery Room Air Room Air Room Air 11/21/18 00:00 Intake Total 1740 ml Balance 1740 ml Weight (Pounds): 266 Weight (Ounces): 2.0 Weight (Calculated Kilograms): 120.293794 Constitutional: AAO x 3, well-developed, well-nourished Respiratory: No accessory muscle use; lungs clear to percussion, lungs clear to auscultation Cardiovascular: regular rate-rhythm, S1 and S2, systolic murmur (faint PRINCE at card base), other (Chest pain reproducible with palpation in the L sub-mammary area) Gastrointestional: No tender; soft; No guarding, No rebound; audible bowel sounds Extremities: No clubbing, No cyanosis, No significant edema Neurologic/Psychiatric: oriented x 3, grossly intact, power is 5/5 both on sides Skin: No rash on exposed areas, No ulcerations on exposed areas Results/Procedures: Labs Laboratory Tests 11/20/18 18:05: Troponin I < 0.028 11/21/18 05:25: Troponin I < 0.028, White Blood Count 4.2L, Red Blood Count 5.06, Hemoglobin 12.9L, Hematocrit 42, Mean Corpuscular Volume 83, Mean Corpuscular Hemoglobin 25, Mean Corpuscular Hemoglobin Concent 31L, Red Cell Distribution Width 19.6H, Platelet Count 204, Mean Platelet Volume 11.0H, Neutrophils (%) (Auto) 48, Lymphocytes (%) (Auto) 34, Monocytes (%) (Auto) 13H, Eosinophils (%) (Auto) 4, Basophils (%) (Auto) 1, Neutrophils # (Auto) 2.0, Lymphocytes # (Auto) 1.4, Monocytes # (Auto) 0.5, Eosinophils # (Auto) 0.2, Basophils # (Auto) 0.1, Sodium Level 140, Potassium Level 3.8, Chloride Level 106, Carbon Dioxide Level 25, Anion Gap 9, Blood Urea Nitrogen 8, Creatinine 1.53H, Estimat Glomerular Filtration Rate 49, BUN/Creatinine Ratio 5, Glucose Level 81, Calcium Level 8.0L , Corrected Calcium 8.7, Magnesium Level 1.7L, Total Bilirubin 0.5, Aspartate Amino Transf (AST/SGOT) 24, Alanine Aminotransferase (ALT/SGPT) 22, Alkaline Phosphatase 66, Total Protein 5.5L, Albumin 3.1L, Triglycerides Level 117, Cholesterol Level 130, LDL Cholesterol Direct 94, VLDL Cholesterol 23, HDL Cholesterol < 15L, Thyroid Stimulating Hormone (TSH) 3.67 Laboratory Tests 11/20/18 12:09 11/21/18 05:25 A/P: Assessment: Chest pain of undetermined etiology, reproducible with palpation over site in the L inframammary area. No evidence of ac FL Hypertension with hypertensive cardiovascular disease (LVH) Echo of 11/21/18: Mild to mod conc LVH, LVEF 60-65, mild to mod enlargement of LA, grade 1 diastolic dysfunction of LV, RVSP 26 mmHg, mod enlargement of aortic root (4.7 cm) Ascending aortic aneurysmal dilatation (aortic root 4.7 cm on echo of 11/21/18, ascending aorta 4.[address] angio of 11/20/18) Exertional shortness of breath CKD 2-3 H/o low testosterone for which he is on testosterone supplements Plan: * Serial cardiac enzymes (0.039, <0.028, <0.028) and ECGs are negative for [place] (type 1 or type 2) * Echo is consistent with LVH due to hypertension and LVH is the likely reason for ECG abnormalities * He has multiple CAD risk factors and today has reported a chronic h/o slowly progressive exertional shortness of breath * We recommend MPI for coronary eval * We have advised f/u on ascending aortic dilatation on an outpatient basis Clinical Quality Measures AMI/AHF: ASA po Prior to arrival: Yes ARTEMIO COATS MD FACP FAC CCDS Nov 21, 2018 15:55
--- NOTE | 2018-11-21 16:00 | NUR ---
CONSENT SIGNED FOR [facility], INSTRUCTED ON BEING NPO AFTER MIDNIGHT
[2018-11-22 00:09] VITALS: BP 131/81
[2018-11-22 03:38] VITALS: BP 120/77
[2018-11-22] MEDS: THYROID (ARMOUR) 60 MG TABLET PO SCH (05:58)
[2018-11-22] MEDS: MAGNESIUM OXIDE (MAG-OX)400 MG TAB PO SCH ×2 (05:58→16:43)
[2018-11-22] MEDS: PANTOPRAZOLE 40 MG (PROTONIX) TAB PO SCH (05:59)
[2018-11-22] MEDS ORDERED: REGADENOSON 0.4 MG/5 ML SYR (LEXISCAN) IV NR (08:00)
[2018-11-22] MEDS ORDERED: REGADENOSON 0.4 MG/5 ML SYR (LEXISCAN) IV ONE (08:05)
--- NOTE | 2018-11-22 08:54 | NUR ---
PATIENT TO [facility] AT THIS TIME. Addendum: 11/22/18 at 0855 by NOREEN PEARSON RN LEFT AT 0715
--- NOTE | 2018-11-22 09:26 | NUR ---
PATIENT BACK TO FLOOR AT THIS TIME VIA W/C. THIS RN WILL ASSUME CARE OF THIS PATIENT AT THIS TIME.
[2018-11-22 09:30] VITALS: BP 130/87
[2018-11-22] MEDS: meTOprolol SUCCINATE 100 MG (TOPROL XL) TAB PO SCH (09:34)
[2018-11-22 12:00] VITALS: BP 132/80
[2018-11-22] MEDS: CATHETER FLUSH 10 ML SYR IV SCH ×2 (16:14→16:17)
--- NOTE | 2018-11-22 16:28 | NUR ---
DISCHARGE INSTRUCTIONS REVIEWED WITH PATIENT AND S.O, IV REMOVED CATH TIP INTACT AT TIME OF REMOVAL. US HERE AT THIS TIME. THIS RN WILL CONT TO MONITOR.
[2018-11-22 16:45] VITALS: BP 132/80
--- NOTE | 2018-11-22 16:50 | Progress Note-Cardiology ---
Cardiology SOAP Progress Note Subjective: No cp or palp or syncope No shortness of breath Chronic exertional shortness of breath Wishes to go home Objective: I&O/Vital Signs 11/22/18 11/22/18 11/22/18 11/22/18 07:00 08:00 09:00 09:30 Temp 98.4 Pulse 65 67 Resp 20 B/P (MAP) 130/87 (101) Pulse Ox 98 98 O2 Delivery Room Air Room Air FiO2 97 11/22/18 11/22/18 12:00 12:35 Temp 98.2 Pulse 79 72 Resp 20 B/P (MAP) 132/80 (97) Pulse Ox 98 11/22/18 00:00 Intake Total 1940 ml Balance 1940 ml Weight (Pounds): 266 Weight (Ounces): 2.0 Weight (Calculated Kilograms): 120.734471 Constitutional: AAO x 3, well-developed, well-nourished Respiratory: No accessory muscle use; lungs clear to percussion, lungs clear to auscultation Cardiovascular: regular rate-rhythm, S1 and S2, systolic murmur (faint PRINCE at card base), other (Chest pain reproducible with palpation in the L sub-mammary area) Gastrointestional: No tender; soft; No guarding, No rebound; audible bowel sounds Extremities: No clubbing, No cyanosis, No significant edema Neurologic/Psychiatric: oriented x 3, grossly intact, power is 5/5 both on sides Skin: No rash on exposed areas, No ulcerations on exposed areas Results/Procedures: Labs Laboratory Tests 11/21/18 05:25 A/P: Assessment: Chest pain of undetermined etiology, likely musculoskeletal, reproducible with palpation over site in the L inframammary area Hypertension with hypertensive cardiovascular disease (LVH) Echo of 11/21/18: Mild to mod conc LVH, LVEF 60-65, mild to mod enlargement of LA, grade 1 diastolic dysfunction of LV, RVSP 26 mmHg, mod enlargement of aortic root (4.7 cm) Ascending aortic aneurysmal dilatation (aortic root 4.7 cm on echo of 11/21/18, ascending aorta 4.[address] angio of 11/20/18) MPI of 11/22/18: No ischemia or infarction, LVEF 52% CKD 2-3 H/o low testosterone for which he is on testosterone supplements Plan: * Serial cardiac enzymes (0.039, <0.028, <0.028) and ECGs are negative for [place] (type 1 or type 2) * Echo is consistent with LVH due to hypertension and LVH is the likely reason for ECG abnormalities * MPI did not show coronary ischemia or infarction * Advised continuation of beta-monica * Risk factor modification has been discussed * I discussed his case with Dr Francois on the phone * We have advised f/u on ascending aortic dilatation on an outpatient basis Clinical Quality Measures AMI/AHF: ASA po Prior to arrival: Yes ARTEMIO COATS MD FACP FAC CCDS Nov 22, 2018 16:50
--- NOTE | 2018-11-22 16:53 | Diagnostic Imaging Report ---
PROCEDURE: US Renal Bilateral. TECHNIQUE: Multiple real-time grayscale images were obtained over the kidneys in various projections bilaterally. INDICATION: Indication: Renal insufficiency Right left kidneys measure 12 x 6.5 x 6.6 cm and 13 x 7.2 x 7.3 cm, respectively. Is no evidence of hydronephrosis or renal mass. Left ureteric jet was seen however right ureteric jet was not confirmed during the exam. Cursory images of the bladder are otherwise unremarkable. Impression: Unremarkable renal ultrasound. Right ureteric jet was not confirmed during the imaging session. Dictated by: Dictated on workstation # [id number]
--- NOTE | 2018-11-22 17:17 | STRESS TEST ---
DATE OF SERVICE: 11/22/2018 RESTING AND POST REGADENOSON TECHNETIUM-99M TETROFOSMIN SPECT CT IMAGING ORDERING PHYSICIAN: Dr. Méndez. PRIMARY CARE PHYSICIAN: Dr. Francois. CLINICAL DIAGNOSIS: Chest discomfort, abnormal electrocardiogram. Baseline images were carried out after injection of 10.06 mCi of technetium-99m Tetrofosmin. This was followed by 0.4 mg regadenoson and 30.9 mCi of technetium-99m Tetrofosmin for stress imaging. The electrocardiogram showed sinus rhythm with mild ST segment depression in the anterolateral leads and this did not change during the regadenoson infusion. The patient tolerated the procedure well and did not report symptoms. Review of images at rest and following stress does not indicate any distinct perfusion defects consistent with significant myocardial ischemia or infarction. Some degree of diaphragmatic attenuation is seen both at rest and following regadenoson infusion. Gated images show normal regional wall motion and normal global left ventricular systolic function with a calculated ejection fraction of 52%. TID is absent (1.04). Mild cardiomegaly is seen. CONCLUSIONS: 1. No evidence of significant myocardial ischemia or infarction on this study. 2. Normal regional wall motion with a calculated ejection fraction of 52%. 3. Mild cardiomegaly. Job ID: [id number] DocumentID: [id number] Dictated Date: 11/22/2018 14:38:40 Press Machine Operator Date: 11/22/2018 17:16:48 Dictated By: ARTEMIO MÉNDEZ MD, MA, FACP, FACC,
== END 2018-11-22 15:35 | disposition home or self-care (01) ==
LOC: EDUNIT# 11:59 → ER 12:04 → 4TH 13:27 → UNDOADMOB 13:27 → ICU 13:27 → 4TH 14:35 → UNDODISOB 11-22 16:45
PROVIDERS: ADMIT Family Medicine; ATTEND Family Medicine
DX: R07.9 Chest pain, unspecified (principal); I13.10 Hypertensive heart and chronic kidney disease without heart failure, with stage 1 through stage 4 chronic kidney disease, or unspecified chronic kidney disease; R06.02 Shortness of breath; N18.3 Chronic kidney disease, stage 3 (moderate); R79.89 Other specified abnormal findings of blood chemistry; I77.819 Aortic ectasia, unspecified site; G47.33 Obstructive sleep apnea (adult) (pediatric); E83.42 Hypomagnesemia; K21.9 Gastro-esophageal reflux disease without esophagitis; Z91.19 Patient's noncompliance with other medical treatment and regimen; Z79.899 Other long term (current) drug therapy
CPT/HCPCS: 36415; 71045; 71275; 76770; 78452; 80053; 80061; 80306; 81000; 83690; 83735; 83874; 83880; 84443; 84484; 85025; 85379; 85610; 85730; 93005; 93017; 93041; 93306; 96361; 96372; 96374

== ENCOUNTER 2019-03-04 07:00 | Day surgery (SDC) | payer BC ==
[2019-03-04] VITALS (9 sets, daily range): BP systolic 107–147; BP diastolic 61–93
[~2019-03-04] VITALS: Ht 177.8 cm; Wt 120.4 kg
[~2019-03-04 07:00] MED LIST changes: +ANAS1TAB7 PO; +CNC1KV IM; +DOXY50CA2 PO; +GUAI-365 PO; +HYDR-3584 PO; +IRBE150T26 PO; +METO-395 PO; +NAPR220T66 PO; +TEST200V21 IM; +THYR90TA PO; +VALA500T PO; +ZOLP5TAB7 PO
[2019-03-04] MEDS ORDERED: LIDOCAINE 1% INJ 20 ML 20 ML VIAL ONE (07:15)
[2019-03-04] MEDS ORDERED: HEParin (CATH LAB) 2,000 ML IV ONE (07:15)
[2019-03-04 07:48] LABS: HEMOGLOBIN 12.9 G/DL (13.3-17.7); MEAN PLATELET VOLUME 10.8 FL (7.4-10.4); RED CELL DISTRIBUTION WIDTH 17.7 % (10.0-14.5); WHITE BLOOD COUNT 7.1 10^3/uL (4.3-11.0)
[2019-03-04] MEDS: NS IV 1000 ML 1,000 ML IV SCH ×2 (07:48→11:00)
[2019-03-04 08:05] LABS: INR 0.9 (0.8-1.4); PROTHROMBIN TIME PATIENT 12.7 SEC (12.2-14.7)
[2019-03-04 08:12] LABS: ALBUMIN 3.8 GM/DL (3.2-4.5); BILIRUBIN,TOTAL 0.5 MG/DL (0.1-1.0); CALCIUM 8.6 MG/DL (8.5-10.1); CREATININE SERUM 1.47 MG/DL (0.60-1.30); TOTAL PROTEIN 6.5 GM/DL (6.4-8.2)
[2019-03-04] MEDS ORDERED: KRIL1CAP18 PO (09:12)
[2019-03-04] MEDS ORDERED: MULT-178 PO (09:12)
[2019-03-04] MEDS ORDERED: CARB15DR OU (09:12)
[2019-03-04] MEDS ORDERED: DOCU-238 PO (09:12)
--- NOTE | 2019-03-04 09:12 | NUR ---
SPOKE WITH PT (HE HAD SOME BOTTLES WITH HIM) WELL CALLING [facility] TO COMPLETE THE MED REC. THE PT WAS ABLE TO TELL ME HOW/WHEN HE TAKES ALL HIS MEDS. THE FOLLOWING DATES ARE FROM [facility]: 01-23-2019 B-12 INJ #4 /56DS 01-23-2019 THYROID #30/30DS 02-14-2019 DOXYCYCLINE #30/30DS 02-14-2019 VALACYCLOVIR #30/30DS 02-14-2019 OMEPRAZOLE #60/30DS 02-19-2019 TESTOSTERONE #2 BOTTLES 02-27-2019 METOPROLOL #60/30DS OTC MEDS: KRILL OIL BID MTC 1 DAILY STOOL SOFTENER 1 DAILY REFRESH TEARS UD
[2019-03-04] MEDS ORDERED: NS IV 1000 ML 1,000 ML ONE (09:59)
[2019-03-04] MEDS ORDERED: MIDAZOLAM 5 MG/5 ML (VERSED) VIAL ONE (12:49)
[2019-03-04] MEDS ORDERED: fentaNYL INJECTION 100 MCG/2 ML AMP ONE (12:49)
--- NOTE | 2019-03-04 13:03 | Cardiac Procedure Note-CS/ASA ---
Pre-Procedure Note Pre-Op Procedure Note H&P Reviewed The H&P was reviewed, patient examined and no changes noted. Date H&P Reviewed: Mar 04, 2019 Time H&P Reviewed: 13:03 Conscious Sedation Pre-Proced Time 13:03 ASA Score 3 For ASA 3 and 4: Consider anesthesia and medical clearance. Also, for patients with a history of failed moderate sedation consider anesthesia. Airway Lungs Heart ASA score ASA 1: a normal healthy patient ASA 2: a patient with a mild systemic disease (mid diabetes, controlled hypertension, obesity ASA 3: a patient with a severe systemic disease that limits activity (angina, COPD, prior Myocardial infarction) ASA 4: a patient with an incapacitating disease that is a constant threat to life (CHF, renal failure) ASA 5: a moribund patient not expected to survive 24 hrs. (ruptured aneurysm) ASA 6: a declared brain- patient whose organs are being harvested. For emergent operations, add the letter E after the classification Mallampati Classification Grade 2 Sedation Plan Analgesia, Amnesia, Plan communicated to team members, Discussed options with patient/fam, Discussed risks with patient/fam The patient is an appropriate candidate to undergo the planned procedure, sedation, and anesthesia. The patient immediately re-assessed prior to indication. ARTEMIO COATS MD FACP FAC CCDS Mar 04, 2019 13:03
[2019-03-04] MEDS ORDERED: diphenhydrAMINE 50 MG/ML INJ (BENADRYL) ONE (13:10)
[2019-03-04] MEDS ORDERED: NS IV 1000 ML 1,000 ML IV SCH (13:41)
[2019-03-04] MEDS ORDERED: PATIENT MAY USE OWN MEDS, ALL PO SCH (13:45)
--- NOTE | 2019-03-04 13:45 | Discharge Inst-Cardiology ---
Discharge Inst-Cardiac Discharge Medications Continued Medications: Carboxymethylcellulose Sodium (Refresh Tears) 15 Ml Drops 2 DROPS OU TID PRN for DRY EYES, DROPS Cyanocobalamin (Cyanocobalamin Injection) 1,000 Mcg/Ml Inj 1 ML IM every 2 weeks Docusate Sodium (Stool Softener) 100 Mg Capsule 100 MG PO DAILY PRN for CONSTIPATION-1ST LINE, CAP Doxycycline Hyclate (Doxycycline Hyclate) 50 Mg Capsule 50 MG PO HS Krill/Om-3/Dha/Epa/Phospho/Ast (Krill Oil 1,000 mg Softgel) 1 Each Capsule 1 EACH PO BID, CAP Metoprolol Succinate (Metoprolol Succinate) 100 Mg Tab.er.24h 100 MG PO BID Multivitamin (Multiple Vitamins) 1 Each Tablet 1 EACH PO DAILY, TAB Omeprazole (Omeprazole) 40 Mg Capsule.dr 40 MG PO BID, CAP Testosterone Cypionate (Testosterone Cypionate) 200 Mg/1 Ml Vial 1 ML IM weekly Thyroid,Pork ([place] Thyroid) 90 Mg Tablet 90 MG PO DAILY Valacyclovir HCl (Valacyclovir) 500 Mg Tablet 500 MG PO DAILY PRN for outbreak Orders-Post D/C & Referrals Pneu Vac Indicated: Yes ARTEMIO COATS MD FACP FAC CCDS Mar 04, 2019 13:45
--- NOTE | 2019-03-04 13:45 | Discharge Inst-Post CATH ---
Discharge Inst-CATH/EP Post Cardiac Cath/EP D/C Inst Follow Up/Plan F/u with Dr Méndez in 2 weeks ACTIVITY * Go Home directly and rest. * Limit activity of the leg (or wrist if it was used) for 7 days including aerobics, swimming, jogging, bicycling, etc. * Restrict stair-climbing for 7 days if possible, if not, climb up with your n on-cath leg, then bring together on the same step. * Avoid lifting, pushing, pulling or excessive movement of the affected ex tremity for 7 days. * Customary sexual activity may be resumed after 2 days-use caution not to use a position that strains or causes pain to the affected extremity. * No driving for 24 hours. * NO SMOKING. * Avoid straining for bowel movements for 7 days. * Gentle walking on level ground is allowed. * Returning to work will depend on the type of procedure and the results. Your doctor will discuss this with you. CALL YOUR DOCTOR FOR ANY OF THE FOLLOWING: *If bleeding from the puncture site occurs- Apply gentle pressure to site with clean cloth and call your doctor or EMS. * If a knot or lump forms under the skin, increases in size, or causes pain. * If bruising appears to be worsening or moving further down your leg instead of disappearing. * Temperature above 101 F. CARE OF YOUR GROIN INCISION; * Bruising or purple discoloration of the skin near the puncture site is common. * You may shower only, no bathtub bathing for 5 days. Be careful to avoid slipping as your leg may feel stiff. * If a closure device was used on your femoral artery, please see the attached guide regarding care of the device and your leg. * Leave dressing on FOR 24 hours. CARE OF YOUR WRIST INCISION; * Bruising or purple discoloration of the skin near the puncture site is common. * You may shower. * DO NOT submerge wrist. * Leave dressing on FOR 24 hours. ARTEMIO MÉNDEZ MD FAC FAC CCDS Mar 04, 2019 13:45
--- NOTE | 2019-03-04 15:58 | CARDIAC CATHETERIZATION ---
DATE OF SERVICE: The patient is a 48-year-old gentleman who has multiple coronary artery disease risk factors. He has been having progressive exertional shortness of breath and this was felt to be an angina equivalent. Given his symptoms and multiple risk factors, cardiac catheterization was carried out today after having obtained an informed consent. He was also made aware of his additional risk of contrast nephropathy, given his chronic kidney disease. He understood that and provided informed consent. Vigorous perioperative hydration was carried out before, during, and after the procedure. This was to reduce risk of contrast nephropathy. DESCRIPTION OF PROCEDURE: He was brought to the cardiac catheterization laboratory. Right groin was prepared and draped in the usual sterile fashion. A 1% lidocaine was used for local anesthesia. Modified Seldinger technique was used to advance a 5-Togolese sheath in right femoral artery. A 5-Togolese JL4 catheter for left coronary angiography, 5-Togolese JR4 catheter for right coronary angiography, 5-Togolese pigtail catheter was used for left heart catheterization. Left ventricular angiography was not performed. This was to conserve contrast to reduce risk of contrast nephropathy. Pigtail catheter was removed after pulling back from the left ventricle. Angiography of the right femoral artery was carried out through the sheath. Mynx was used to achieve hemostasis. The total amount of contrast used was 25 mL. He tolerated the procedure well. HEMODYNAMICS: Left ventricular end-diastolic pressure following coronary angiography was 18 mmHg. There was approximately 18 mm pressure gradient on pullback across the aortic valve. Ascending aortic pressure was 120/76 with a mean of 95 mmHg. CORONARY ANGIOGRAPHY: Left main coronary artery, left anterior descending artery, left circumflex artery, right coronary artery do not exhibit any angiographically significant disease. CONCLUSIONS: 1. No angiographically significant coronary artery disease. 2. Moderately elevated left ventricular end-diastolic pressure. 3. An 18 mm pressure gradient on pullback across the aortic valve. DISCUSSION AND RECOMMENDATIONS: Based on results of the study, it appears appropriate to continue a conservative approach. Risk factor modification has been reviewed. Outpatient followup is advised. Job ID: [id number] DocumentID: [id number] Dictated Date: 03/04/2019 13:34:34 [employer] Date: 03/04/2019 15:57:06 Dictated By: ARTEMIO COATS MD, MA, FACP, FACC,
== END 2019-03-04 17:00 | disposition home or self-care (01) ==
LOC: CATH 07:00 → SDC 14:03 → CATH 17:00
PROVIDERS: ATTEND Internal Medicine Cardiovascular Disease
DX: I11.9 Hypertensive heart disease without heart failure (principal); G47.30 Sleep apnea, unspecified; I71.9 Aortic aneurysm of unspecified site, without rupture; Z79.899 Other long term (current) drug therapy; Z82.49 Family history of ischemic heart disease and other diseases of the circulatory system; Z83.3 Family history of diabetes mellitus; Z82.3 Family history of stroke
CPT/HCPCS: 36415; 80053; 80061; 85027; 85610; 85730; 87081; 93458

== ENCOUNTER → 2019-04-18 | Outpatient (CLI) | payer BC ==
[~2019-04-18] MED LIST changes: +CARB15DR OU; +DOCU-238 PO; +KRIL1CAP18 PO; +MULT-178 PO; +RT-ALBUTEROL SULF 2.5 MG/3 ML PRE-MIX VIAL INH ONE
== END ==
LOC: RT 09:24
PROVIDERS: ATTEND Nurse Practitioner Family
DX: J30.9 Allergic rhinitis, unspecified (principal); G47.33 Obstructive sleep apnea (adult) (pediatric)
CPT/HCPCS: 94060; 94640; 94726; 94729

== ENCOUNTER 2019-05-21 | Outpatient (RCR) | payer BC ==
[~2019-05-21] MED LIST changes: +IRBE150T23 PO; -IRBE150T26 PO; -METO-395 PO; +MTP100TCR PO; +OMEP40CA27 PO; -RT-ALBUTEROL SULF 2.5 MG/3 ML PRE-MIX VIAL INH ONE; -VALA500T PO; +VALA500T7 PO
== END 2019-08-03 | disposition home or self-care (01) ==
LOC: CARD
PROVIDERS: ATTEND Nurse Practitioner Family
DX: I10 Essential (primary) hypertension (principal); R00.2 Palpitations; R06.09 Other forms of dyspnea; I71.2 Thoracic aortic aneurysm, without rupture

== ENCOUNTER 2019-06-05 08:13 | Day surgery (SDC) | payer BC ==
[~2019-06-05] VITALS: Ht 180 cm; Wt 123.0 kg
[~2019-06-05 08:13] MED LIST changes: -IRBE150T23 PO; +IRBE150T26 PO; +VALA500T PO; -VALA500T7 PO
[2019-06-05 08:36] VITALS: BP 123/65
[2019-06-05] MEDS ORDERED: LIDOCAINE 1% INJ 20 ML 20 ML VIAL INJ ONE (08:45)
[2019-06-05] MEDS ORDERED: LIDOCAINE 1% INJ 20 ML 20 ML VIAL ONE (08:50)
--- NOTE | 2019-06-05 09:48 | Implantation of Loop Monitor ---
Implant of Loop Monitior PROCEDURE PHYSICIAN: Jazmín Perkins MD IMPLANTATION OF LOOP MONITOR REPORT DATE OF PROCEDURE: 06/05/19 PERFORMING PHYSICIAN: Dr. Pj Perkins. INDICATION: Long-term surveillance of paroxysmal atrial fibrillation PREOP DIAGNOSIS: Long-term surveillance of paroxysmal atrial fibrillation POSTOP DIAGNOSIS: Paroxysmal Atrial fibrillation, s/p implantation of loop recorder. PROCEDURE DETAILS: The patient is a 49 male with history of paroxysmal atrial fibrillation requiring long-term surveillance. Therefore implantable loop recorder was discussed and agreed with the patient. Informed consent was taken. All risks and complications were discussed at length. The patient was draped and prepped in the usual sterile fashion. Local anesthesia was lidocaine, which was given in the substernal area close to the 4th intercostal space. Loop monitor was implanted according to the protocol. Steri-Strips were placed at the end of the procedure. There were no complications and the patient tolerated the procedure well. ANESTHESIA: Local anesthesia with lidocaine. COMPLICATIONS: None CONTRAST/FLUOROSCOPY: None CONCLUSION: 1. Successful implantation of loop monitor for paroxysmal atrial fibrillat ion. 2. No complication and the patient tolerated the procedure well. Jazmín Perkins MD, [facility] Cardiac Electrophysiology Jurgen PERKINS MD Jun 05, 2019 09:48
--- NOTE | 2019-06-05 09:48 | History & Physicial-Cardiolgy ---
HPI-Cardiology Cardiology Consultation: Date of Consultation 06/05/19 Date of Admission Attending Physician Jurgen Perkins MD Admitting Physician Debbi Francois DO Consulting Physician Jurgen PERKINS MD HPI: Time Seen by a Provider: 09:30 Chief Complaint: Paroxysmal atrial fibrillation This is a 49-year-old gentleman who is a patient of Dr. Méndez. The patient has history of paroxysmal atrial fibrillation with rapid ventricular rate. He also had an episode of brief wide complex tachycardia for 5-6 beats on event monitor. Patient had normal coronary angiography with no CAD. Normal ejection fraction on echocardiogram. Patient is on maximum dose of beta monica. Review of Systems-Cardiology Review of Systems Constitutional: As described under HPI; No As described under HPI, No no symptoms reported, No chills, No fever, No lightheadedness Eyes: No As described under HPI, No no symptoms reported, No blindness, No blurred vision, No contact lenses, No drainage, No decreased acuity, No foreign body sensation, No pain, No vision change Ears/Nose/Throat: No As described under HPI, No no symptoms reported, No chronic hearing loss, No ear discharge, No ear pain, No nasal drainage, No ulcerations Respiratory: No no symptoms reported; As described under HPI; No As described under HPI, No cough, No orthopnea, No shortness of breath, No SOB with excertion Cardiovascular: No no symptoms reported; As described under HPI; No As described under HPI, No chest pain, No edema, No irregular heart rate, No lightheadedness; palpitations Gastrointestinal: No no symptoms reported, No As described under HPI, No abdomen distended, No abdominal pain, No blood streaked bowels, No constipation, No diarrhea, No nausea, No vomiting, No stool coloration changes Genitourinary: No As described under HPI, No burning, No dysuria, No discharge, No frequency, No flank pain, No hematuria, No urgency Skin: No rash, No skin related problems, No ulcerations Psychiatric/Neurological: No anxiety, No depression, No seizure, No focal weakness, No syncope Hematologic: No bleeding abnormalities DHO-Zovfze-Jpxcjz Hx Patient Social History Alcohol Use: Occasionally Uses Recreational Drug Use: No Smoking Status: Never a Smoker Recent Foreign Travel: No Recent Infectious Disease Expo: No Immunizations Up To Date Tetanus Booster (TDap): Unknown Past Medical History PMH As described under Assessment. Family Medical History Family Medical History: No fam h/o early CAD or SCD reported Allergies and Home Medications Allergies Coded Allergies: No Known Drug Allergies (Verified , 11/15/08) Home Medications Carboxymethylcellulose Sodium 15 Ml Drops, 2 DROPS OU TID PRN for DRY EYES, (Reported) Cyanocobalamin 1,000 Mcg/Ml Inj, 1 ML IM every 2 weeks, (Reported) Docusate Sodium 100 Mg Capsule, 100 MG PO DAILY PRN for CONSTIPATION-1ST LINE, (Reported) Doxycycline Hyclate 50 Mg Capsule, 50 MG PO HS, (Reported) Krill/Om-3/Dha/Epa/Phospho/Ast 1 Each Capsule, 1 EACH PO BID, (Reported) Metoprolol Succinate 100 Mg Tab.er.24h, 100 MG PO BID, (Reported) Multivitamin 1 Each Tablet, 1 EACH PO DAILY, (Reported) Omeprazole 40 Mg Capsule.dr, 40 MG PO BID, (Reported) Testosterone Cypionate 200 Mg/1 Ml Vial, 1 ML IM weekly, (Reported) Thyroid,Pork 90 Mg Tablet, 90 MG PO DAILY, (Reported) Valacyclovir HCl 500 Mg Tablet, 500 MG PO DAILY PRN for outbreak, (Reported) Patient Home Medication List Home Medication List Reviewed: Yes Physical Exam-Cardiology Physical Exam Vital Signs/I&O 06/05/19 08:36 Temp 37.3 Pulse 67 Resp 16 B/P (MAP) 123/65 (84) Pulse Ox 98 O2 Delivery Room Air Capillary Refill : Constitutional: appears stated age; No apparent distress; well-developed, well- nourished HEENT: PERRL; No discharge; hearing is well preserved, oral hygience is good; No ulceration, No xanthelasmas are seen Neck: No carotid bruit; carotid pulses are 2 + bilaterally Respiratory: chest is bilaterally symmetric, lungs clear to auscultation Cardiovascular: regular rate-rhythm, S1 and S2 Gastrointestinal: soft, audible bowel sounds; No spleenomegaly Rectal: deferred Extremities: normal range of motion, non-tender, normal inspection; No clubbing, No cyanosis, No significant edema Neurologic/Psychiatric: no motor/sensory deficits, alert, normal mood/affect, oriented x 3, power is 5/5 both on sides Skin: normal color; No rash, No ulcerations A/P-Cardiology Assessment/Admission Diagnosis Paroxysmal atrial fibrillation Admission Status: Observation Plan Paroxysmal atrial fibrillation, long-term surveillance is recommended. Implantable loop recorder is recommended. Jurgen PERKINS MD Jun 05, 2019 09:48
== END 2019-06-05 10:19 | disposition home or self-care (01) ==
LOC: CATH 08:13
PROVIDERS: ATTEND Internal Medicine Interventional Cardiology
DX: I48.0 Paroxysmal atrial fibrillation (principal); I51.7 Cardiomegaly; I71.2 Thoracic aortic aneurysm, without rupture; I12.9 Hypertensive chronic kidney disease with stage 1 through stage 4 chronic kidney disease, or unspecified chronic kidney disease; N18.9 Chronic kidney disease, unspecified; I47.2 Ventricular tachycardia; I49.5 Sick sinus syndrome; J45.909 Unspecified asthma, uncomplicated; G47.33 Obstructive sleep apnea (adult) (pediatric); Z79.01 Long term (current) use of anticoagulants; Z79.899 Other long term (current) drug therapy; Z87.891 Personal history of nicotine dependence; Z82.49 Family history of ischemic heart disease and other diseases of the circulatory system; Z80.9 Family history of malignant neoplasm, unspecified
CPT/HCPCS: 33285

== ENCOUNTER → 2019-11-04 | Outpatient (CLI) | payer BC ==
[~2019-11-04] MED LIST changes: +IRBE150T23 PO; -IRBE150T26 PO; -VALA500T PO; +VALA500T7 PO
--- NOTE | 2019-11-04 15:20 | Diagnostic Imaging Report ---
PROCEDURE: US Renal Bilateral. TECHNIQUE: Multiple real-time grayscale images were obtained over the kidneys in various projections bilaterally. INDICATION: Back pain with proteinuria and hematuria. FINDINGS: Right kidney measures 11.2 x 6.3 x 6.2 cm and the left kidney measures 13.1 x 5.2 x 6.4 cm. Cortical thickness and echogenicity is normal. No calculi are detected. There is no hydronephrosis. Urinary bladder is unremarkable. There is some prostatic enlargement. IMPRESSION: 1. Unremarkable renal ultrasound. 2. Prostatomegaly. Dictated by: Dictated on workstation # [id number]
== END ==
LOC: RAD 14:45
PROVIDERS: ATTEND Family Medicine
DX: R80.9 Proteinuria, unspecified (principal); R31.9 Hematuria, unspecified; N40.0 Benign prostatic hyperplasia without lower urinary tract symptoms
CPT/HCPCS: 76770

== ENCOUNTER → 2019-12-10 | Outpatient (CLI) | payer BC ==
[~2019-12-10] MED LIST changes: +HOLD METFORMIN - RECEIVED CONTRAST 20 ML VIAL IV SCH; +IOHEXOL 350 MG/ML 100 ML (OMNIPAQUE 350) VIAL IV ONE; +NS 100 ML (IVPB) BAG IV ONE
[2019-12-10 09:59] LABS: CREATININE SERUM 1.34 MG/DL (0.60-1.30)
--- NOTE | 2019-12-10 11:02 | Diagnostic Imaging Report ---
PROCEDURE: CT head with and without contrast. TECHNIQUE: Multiple contiguous axial images were obtained through the brain before and after the administration of intravenous contrast. Auto Exposure Controls were utilized during the CT exam to meet ALARA standards for radiation dose reduction. INDICATION: Primary optic atrophy. No prior studies are available for comparison. The ventricles and sulci are within normal limits. There is some subtle low density on the right adjacent to the right frontal horn. This may be owing to white matter disease. There is no sulcal effacement or midline shift. No acute intra-axial or extra-axial hemorrhage is detected. No abnormal enhancement is identified following contrast administration. Cisterns are patent. There is mucosal thickening of the left maxillary sinus. IMPRESSION: 1. Ill-defined low density adjacent to right frontal horn suggestive of white matter changes. MRI of the brain would be useful for further characterization. No acute intracranial process is detected. 2. Left maxillary sinus mucosal disease. Dictated by: Dictated on workstation # [id number]
== END ==
LOC: RAD 09:22
PROVIDERS: ATTEND Ophthalmology
DX: H47.211 Primary optic atrophy, right eye (principal); H53.031 Strabismic amblyopia, right eye; J32.0 Chronic maxillary sinusitis
CPT/HCPCS: 36415; 70470; 82565; 84520

== ENCOUNTER → 2019-12-24 | Outpatient (CLI) | payer BC ==
[~2019-12-24] MED LIST changes: +GADOBUTROL 15 MMOL/15 ML (GADAVIST) VIAL IV ONE; -HOLD METFORMIN - RECEIVED CONTRAST 20 ML VIAL IV SCH; -IOHEXOL 350 MG/ML 100 ML (OMNIPAQUE 350) VIAL IV ONE; -NS 100 ML (IVPB) BAG IV ONE
--- NOTE | 2019-12-24 17:19 | Diagnostic Imaging Report ---
PROCEDURE: MR imaging of the brain with and without contrast. TECHNIQUE: Multiplanar, multisequence MR imaging of the brain was performed with and without contrast. INDICATION: Primary optic atrophy. Asymmetric pupil dilatation. COMPARISON: None available. FINDINGS: No foci of restricted diffusion to indicate acute infarct. No hydrocephalus or midline shift. Patchy periventricular and subcortical white matter T2/FLAIR hyperintensities are present and most compatible with microvascular process. These lesions do not have a distribution that would suggest demyelinating disease. There is no extra-axial fluid collection. Postcontrast imaging demonstrates no masslike or meningeal enhancement. The pituitary infundibulum is in midline. There is no pituitary mass or suprasellar mass. The optic chiasm is normal in appearance. There is no abnormal enhancement along the optic nerves to suggest neuritis. The globes are symmetric. Major arterial flow voids are preserved. There is no large bolus flow void to suggest large aneurysm in the [place] of [place]. IMPRESSION: 1. No acute intracranial process. Specifically, no acute infarct, hydrocephalus, hemorrhage or mass. 2. No sella or suprasellar mass. Optic chiasm is normal in appearance. No abnormality in Meckel's cave or the cavernous sinus. Dictated by: Dictated on workstation # [id number]
== END ==
LOC: RAD 12:33
PROVIDERS: ATTEND Ophthalmology
DX: H47.211 Primary optic atrophy, right eye (principal); H53.031 Strabismic amblyopia, right eye; H57.02 Anisocoria
CPT/HCPCS: 70553

== ENCOUNTER → 2020-02-25 | Outpatient (CLI) | payer BC ==
[~2020-02-25] MED LIST changes: -GADOBUTROL 15 MMOL/15 ML (GADAVIST) VIAL IV ONE
--- NOTE | 2020-02-25 09:44 | Diagnostic Imaging Report ---
PROCEDURE: US Thyroid. TECHNIQUE: Multiple Real-time grayscale images were obtained of the thyroid in various projections. INDICATION: Dysphagia and hypothyroidism. FINDINGS: The right lobe of the thyroid measures 5.3 x 1.8 x 2.0 cm and the left lobe measures 5.0 x 1.9 x 1.9 cm. The isthmus is 3 mm in thickness. Both lobes are somewhat heterogeneous but no discrete thyroid mass is detected. IMPRESSION: Thyroid heterogeneity. No discrete thyroid mass is detected. Dictated by: Dictated on workstation # [id number]
== END ==
LOC: RAD 08:15
PROVIDERS: ATTEND Nurse Practitioner Family
DX: E03.9 Hypothyroidism, unspecified (principal); E07.89 Other specified disorders of thyroid
CPT/HCPCS: 76536

== ENCOUNTER 2020-02-29 12:23 | Emergency (ER) | payer BC ==
[~2020-02-29] VITALS: Ht 177 cm; Wt 122.4 kg
[2020-02-29] MEDS ORDERED: ONDANSETRON 4 MG/2 ML (SDV) Z0FRAN ONE (12:48)
[2020-02-29] MEDS ORDERED: LACTATED RINGERS 1,000 ML IV ONE ×2 (12:52)
[2020-02-29] MEDS ORDERED: ACETAMINOPHEN 500 MG TAB (TYLENOL) PO PRN (13:00)
[2020-02-29] MEDS ORDERED: AZITHROMYCIN INJECTION 500 MG in NS (IVPB) 250 ML IV ONE (13:00)
[2020-02-29] MEDS ORDERED: ONDANSETRON 4 MG/2 ML (SDV) Z0FRAN IVP ONE (13:00)
[2020-02-29] MEDS ORDERED: cefTRIAXone FOR IV USE 1,000 MG in WATER (STERILE) FOR INJECTION 10 ML IV ONE (13:00)
[2020-02-29 13:09] LABS: BASOPHILS % (AUTO) 0 % (0-10); EOSINOPHILS % (AUTO) 0 % (0-10); HEMATOCRIT 43 % (40-54); LYMPHOCYTES # (AUTO) 0.8 10^3/uL (1.0-4.0); LYMPHOCYTES % (AUTO) 22 % (12-44); MEAN CORPUSCULAR HEMOGLOBIN 24 pg (25-34); MEAN CORPUSCULAR HGB CONC 31 g/dL (32-36); MEAN CORPUSCULAR VOLUME 80 fL (80-99); MEAN PLATELET VOLUME 12.4 fL (9.0-12.2); MONOCYTES # (AUTO) 0.3 10^3/uL (0.0-1.0); MONOCYTES % (AUTO) 9 % (0-12); NEUTROPHILS # (AUTO) 2.6 10^3/uL (1.8-7.8); NEUTROPHILS % (AUTO) 68 % (42-75); PLATELET COUNT 211 10^3/uL (130-400); WHITE BLOOD COUNT 3.8 10^3/uL (4.3-11.0)
--- NOTE | 2020-02-29 13:09 | ED Respiratory ---
General Chief Complaint: Respiratory Problems Stated Complaint: SOA / COUGH Nursing Triage Note: has not felt well for the past 4 days, states SOB and symptoms are getting worse Source: patient Exam Limitations: no limitations History of Present Illness Date Seen by Provider: Feb 29, 2020 Time Seen by Provider: 12:39 Initial Comments Patient presents ER by private conveyance from home with chief complaint of progressively worsening shortness of breath cough fever and chills. No known sick contacts. He does have a history of COPD and denies a history of diabetes o r coronary disease. He is not having any pain just all over body aches. His been going on for about a week and Sunday of last week he went to see Dr. Francois his primary care provider who ordered an ultrasound of his neck since he is having difficulty swallowing. He took 800 mg of ibuprofen about an hour prior to arrival. He is having some nausea without vomiting. No diarrhea. He says labs were obtained but no swabs. Allergies and Home Medications Allergies Coded Allergies: No Known Drug Allergies (Verified , 11/15/08) Home Medications Carboxymethylcellulose Sodium 15 Ml Drops, 2 DROPS OU TID PRN for DRY EYES, (Reported) Cyanocobalamin 1,000 Mcg/Ml Inj, 1 ML IM every 2 weeks, (Reported) Dexamethasone 6 Mg Tablet, 6 MG PO DAILY Prescribed by: BRENNEN POLLARD on 02/29/20 1439 Docusate Sodium 100 Mg Capsule, 100 MG PO DAILY PRN for CONSTIPATION-1ST LINE, (Reported) Doxycycline Hyclate 50 Mg Capsule, 50 MG PO HS, (Reported) Krill/Om-3/Dha/Epa/Phospho/Ast 1 Each Capsule, 1 EACH PO BID, (Reported) Metoprolol Succinate 100 Mg Tab.er.24h, 100 MG PO BID, (Reported) Multivitamin 1 Each Tablet, 1 EACH PO DAILY, (Reported) Omeprazole 40 Mg Capsule.dr, 40 MG PO BID, (Reported) Testosterone Cypionate 200 Mg/1 Ml Vial, 1 ML IM weekly, (Reported) Thyroid,Pork 90 Mg Tablet, 90 MG PO DAILY, (Reported) Valacyclovir HCl 500 Mg Tablet, 500 MG PO DAILY PRN for outbreak, (Reported) Patient Home Medication List Home Medication List Reviewed: Yes Review of Systems Review of Systems Constitutional: No chills, No diaphoresis EENTM: throat pain; No ear discharge, No ear pain Respiratory: cough, phlegm, short of breath; No stridor, No wheezing Cardiovascular: No chest pain, No edema Gastrointestinal: No abdominal pain, No constipation, No diarrhea Genitourinary: No discharge, No dysuria, No frequency Musculoskeletal: No back pain, No joint pain Psychiatric/Neurological: Denies Anxiety, Denies Depressed All Other Systems Reviewed Negative Unless Noted: Yes Past Yorjjjz-Edewzb-Hknyhb Hx Patient Social History Alcohol Use: Denies Use Recreational Drug Use: No 2nd Hand Smoke Exposure: No Recent Foreign Travel: No Contact w/Someone Who Travel: No Recent Infectious Disease Expo: No Recent Hopitalizations: No Immunizations Up To Date Tetanus Booster (TDap): Unknown Seasonal Allergies Seasonal Allergies: Yes Past Medical History Surgeries: Yes (LHC) Appendectomy, Eye Surgery, Orthopedic Respiratory: No Sleep Apnea Currently Using CPAP: Yes Cardiac: Yes (AAA) Heart Attack, Hypertension, Palpitations Neurological: No Reproductive Disorders: No Genitourinary: Yes Renal Failure Gastrointestinal: Yes Gastroesophageal Reflux Musculoskeletal: Yes (KNEE SURG ) Endocrine: Yes Cancer: No Psychosocial: Yes (horrible fear of needle) Integumentary: No Blood Disorders: No Adverse Reaction/Blood Tranf: No Physical Exam Vital Signs - First Documented 02/29/20 12:48 Temp 39.0 Pulse 101 Resp 22 Pulse Ox 97 O2 Delivery Room Air Capillary Refill : Less Than 3 Seconds Height: 5'9.00" Weight: 266lbs. 2.0oz. 120.491522vm; 39.00 BMI Method:Stated General Appearance: WD/WN, moderate distress Eyes: Bilateral Eye Normal Inspection, Bilateral Eye PERRL, Bilateral Eye EOMI HEENT: PERRL/EOMI, normal ENT inspection, TMs normal, pharyngeal erythema Neck: full range of motion, normal inspection Respiratory: lungs clear, normal breath sounds, no respiratory distress, no accessory muscle use Cardiovascular: normal peripheral pulses, regular rate, rhythm Extremities: normal range of motion, non-tender, normal capillary refill Neurologic/Psychiatric: alert, normal mood/affect, oriented x 3 Skin: normal color, diaphoresis Focused Exam Lactate Level 02/29/20 12:51: Lactic Acid Level 1.09 Lactic Acid Level Laboratory Tests Test 02/29/20 12:51 Lactic Acid Level 1.09 MMOL/L (0.50-2.00) Progress/Results/Core Measures Suspected Sepsis Recent Fever Within 48 Hours: Yes Infection Criteria Present: Suspected New Infection New/Unexplained Altered Menta: No Sepsis Screen: Possible Severe Sepsis Risk SIRS Temperature: Pulse: 101 Respiratory Rate: 22 Laboratory Tests 02/29/20 12:51: White Blood Count 3.8L Blood Pressure / Mean: 02/29/20 12:51: Lactic Acid Level 1.09 Laboratory Tests 02/29/20 12:51: Creatinine 1.90H, INR Comment 1.0, Platelet Count 211, Total Bilirubin 0.6 Results/Orders Lab Results Laboratory Tests Test 02/29/20 12:51 02/29/20 13:02 02/29/20 13:58 Range/Units White Blood Count 3.8 L 4.3-11.0 10^3/uL Red Blood Count 5.33 4.30-5.52 10^6/uL Hemoglobin 13.0 L 13.3-17.7 g/dL Hematocrit 43 40-54 % Mean Corpuscular Volume 80 80-99 fL Mean Corpuscular Hemoglobin 24 L 25-34 pg Mean Corpuscular Hemoglobin Concent 31 L 32-36 g/dL Red Cell Distribution Width 16.6 H 10.0-14.5 % Platelet Count 211 130-400 10^3/uL Mean Platelet Volume 12.4 H 9.0-12.2 fL Immature Granulocyte % (Auto) 1 % Neutrophils (%) (Auto) 68 42-75 % Lymphocytes (%) (Auto) 22 12-44 % Monocytes (%) (Auto) 9 0-12 % Eosinophils (%) (Auto) 0 0-10 % Basophils (%) (Auto) 0 0-10 % Neutrophils # (Auto) 2.6 1.8-7.8 10^3/uL Lymphocytes # (Auto) 0.8 L 1.0-4.0 10^3/uL Monocytes # (Auto) 0.3 0.0-1.0 10^3/uL Eosinophils # (Auto) 0.0 0.0-0.3 10^3/uL Basophils # (Auto) 0.0 0.0-0.1 10^3/uL Immature Granulocyte # (Auto) 0.0 0.0-0.1 10^3/uL Prothrombin Time 13.4 12.2-14.7 SEC INR Comment 1.0 0.8-1.4 Activated Partial Thromboplast Time 32 24-35 SEC D-Dimer 1.70 H 0.00-0.49 UG/ML Sodium Level 138 135-145 MMOL/L Potassium Level 4.2 3.6-5.0 MMOL/L Chloride Level 105 98-107 MMOL/L Carbon Dioxide Level 21 21-32 MMOL/L Anion Gap 12 5-14 MMOL/L Blood Urea Nitrogen 12 7-18 MG/DL Creatinine 1.90 H 0.60-1.30 MG/DL Estimat Glomerular Filtration Rate 38 BUN/Creatinine Ratio 6 Glucose Level 103 70-105 MG/DL Lactic Acid Level 1.09 0.50-2.00 MMOL/L Calcium Level 8.0 L 8.5-10.1 MG/DL Corrected Calcium 8.2 L 8.5-10.1 MG/DL Total Bilirubin 0.6 0.1-1.0 MG/DL Aspartate Amino Transf (AST/SGOT) 30 5-34 U/L Alanine Aminotransferase (ALT/SGPT) 26 0-55 U/L Alkaline Phosphatase 55 40-136 U/L C-Reactive Protein High Sensitivity 5.64 H 0.00-0.50 MG/DL Total Protein 6.9 6.4-8.2 GM/DL Albumin 3.8 3.2-4.5 GM/DL Procalcitonin 0.07 <0.10 NG/ML Group A Streptococcus Screen NEGATIVE NEGATIVE Coronavirus 2019 ([facility]) Positive H Negative Micro Results Microbiology 02/29/20 Influenza Types A,B Antigen (ESME) - Final, Complete My Orders Orders - BRENNEN POLLARD Ondansetron Injection (Zofran Injectio (02/29/20 13:00) Ondansetron Injection (Zofran Injectio (02/29/20 12:48) Cbc With Automated Diff (02/29/20 12:52) Comprehensive Metabolic Panel (02/29/20 12:52) Blood Culture (02/29/20 12:52) Sputum Culture (02/29/20 12:52) Urinalysis (02/29/20 12:52) Urine Culture (02/29/20 12:52) Protime With Inr (02/29/20 12:52) Partial Thromboplastin Time (02/29/20 12:52) Chest 1 View, Ap/Pa Only (02/29/20 12:52) Acetaminophen Tablet (Tylenol Tablet) (02/29/20 13:00) Ed Iv/Invasive Line Start (02/29/20 12:52) Ed Iv/Invasive Line Start (02/29/20 12:52) Vital Signs Adult Sepsis Patie Q15M (02/29/20 12:52) O2 (02/29/20 12:52) Remove Rings In Anticipation O (02/29/20 12:52) Lactic Acid Analyzer (02/29/20 12:52) Influenza A And B Antigens (02/29/20 12:52) Lactated Ringers (Lr 1000 Ml Iv Solution (02/29/20 12:52) Ceftriaxone For Iv Use (Rocephin For I (02/29/20 13:00) Azithromycin Injection (Zithromax Inject (02/29/20 13:00) Ed Iv/Invasive Line Start (02/29/20 12:52) Lactated Ringers (Lr 1000 Ml Iv Solution (02/29/20 12:52) Fibrin Degradation Products (02/29/20 12:52) Procalcitonin (Pct) (02/29/20 12:52) Hs C Reactive Protein (02/29/20 12:52) Rapid Strep A Screen (02/29/20 12:52) Covid 19 Inhouse Test (02/29/20 12:52) Dexamethasone Injection (Decadron Inje (02/29/20 14:45) Medications Given in ED Current Medications Medications Dose Ordered Sig/Jessica Route Start Time Stop Time Status Last Admin Dose Admin Acetaminophen 1,000 mg ONCE PRN PO 02/29/20 13:00 02/29/20 13:15 DC 02/29/20 13:14 1,000 MG Azithromycin 500 mg/Sodium Chloride 255 ml @ 250 mls/hr ONCE ONCE IV 02/29/20 13:00 02/29/20 14:01 DC 02/29/20 13:58 250 MLS/HR Ceftriaxone Sodium 1000 mg/ Sterile Water 10 ml @ 200 mls/hr ONCE ONCE IV 02/29/20 13:00 02/29/20 13:02 DC 02/29/20 13:57 200 MLS/HR Lactated Ringer's 1,000 ml @ 0 mls/hr Q0M ONCE IV 02/29/20 12:52 02/29/20 13:01 DC 02/29/20 13:57 1,000 MLS/HR Ondansetron HCl 8 mg ONCE ONCE IVP 02/29/20 13:00 02/29/20 13:01 DC 02/29/20 12:59 8 MG Vital Signs/I&O 02/29/20 12:48 Temp 39.0 Pulse 101 Resp 22 B/P (MAP) Pulse Ox 97 O2 Delivery Room Air Capillary Refill : Less Than 3 Seconds Progress Note #1: Time: 12:59 Progress Note Febrile, tachycardic, diaphoretic. Plan to give him a septic workup including adjusted fluids 2 L based on an adjusted ideal body weight of 93 kg would put him just over 20 L/kg. Plan to give a gram of Tylenol and 8 of Zofran for his nausea. With chest x-ray. Suspicion he has a pneumonia viral versus bacterial. We'll get swabs for COVID 19, rapid strep, influenza is maintaining 96% on room air nonlabored breathing. Progress Note #2: Time: 14:37 Progress Note the patient is feeling a little bit better. He is not having any, hemoptysis or hypoxia. We did early on offer him a stay but he would prefer to go home. We'll put him on dexamethasone and have him follow-up by phone with PCP. Good return precautions were given. Diagnostic Imaging Diagonstic Imaging: Xray Plain Films/CT/US/NM/MRI: chest Comments NAME: TIM JOYCE [facility] REC#: [id number] PT STATUS: REG ER : 1970 PHYSICIAN: BRENNEN POLLARD MD ADMIT DATE: 02/29/20/ER Draft Date of Exam:02/29/20 CHEST 1 VIEW, AP/PA ONLY INDICATION: Sepsis COMPARISON: 11/20/2018 TECHNIQUE: Single radiograph of the chest dated 02/29/2020. FINDINGS: Loop recorder is identified overlying left chest, new since the prior examination. The cardiac silhouette is enlarged, though stable. No significant pulmonary vascular congestion. Tortuosity of the descending thoracic aorta is again seen. Density overlying the peripheral aspect of the lungs bilaterally is felt to simply relate to overlying soft tissue. The lungs are otherwise clear. No pleural effusion. No pneumothorax. No acute osseous abnormality. IMPRESSION: Opacities overlying the peripheral aspect of the lungs bilaterally felt to relate to overlying soft tissues. Cardiomegaly without overt congestive heart failure. Interval placement of a loop recorder overlying left chest. Dictated on workstation # [id number] Dict: 02/29/20 1427 Trans: 02/29/20 1440 CVB [id number] Interpreted by: REJI XIE MD Electronically signed by: Reviewed: Reviewed by Me Departure Impression Primary Impression: COVID-19 Disposition: 01 HOME, SELF-CARE Condition: Improved Departure-Patient Inst. Decision time for Depature: 14:38 Referrals: KELLIE FRANCOIS DO (PCP/Family) Primary Care Physician Patient Instructions: Coronavirus Disease 2019 (COVID-19) Overview Add. Discharge Instructions: supervisor of operations the dexamethasone and take 6 mg daily. Get plenty of rest and drink plenty of fluids. Quarantine herself at home away from other people for 10 days from the time your symptoms started. You may return off of quarantine after you are 72 hours symptoms free. Call your primary care doctor in the morning for further advice. Return to the ER should your symptoms worsen. All discharge instructions reviewed with patient and/or family. Voiced understanding. Scripts Dexamethasone (Dexamethasone) 6 Mg Tablet 6 MG PO DAILY for 9 Days, #9 TAB 0 Refills Prov: BRENNEN POLLARD 02/29/20 BRENNEN POLLARD Feb 29, 2020 13:09
[2020-02-29 13:14] LABS: ALBUMIN 3.8 GM/DL (3.2-4.5); POTASSIUM 4.2 MMOL/L (3.6-5.0)
[2020-02-29 13:16] LABS: FIBRIN DEGRADATION PRODUCTS 1.7 UG/ML (0.00-0.49); PROTHROMBIN TIME PATIENT 13.4 SEC (12.2-14.7); TOTAL PROTEIN 6.9 GM/DL (6.4-8.2)
[2020-02-29 13:18] LABS: BILIRUBIN,TOTAL 0.6 MG/DL (0.1-1.0)
[2020-02-29 13:20] LABS: CREATININE SERUM 1.9 MG/DL (0.60-1.30)
[2020-02-29] MEDS ORDERED: DEXA6TAB PO (14:39)
--- NOTE | 2020-02-29 14:41 | Diagnostic Imaging Report ---
INDICATION: Sepsis COMPARISON: 11/20/2018 TECHNIQUE: Single radiograph of the chest dated 02/29/2020. FINDINGS: Loop recorder is identified overlying left chest, new since the prior examination. The cardiac silhouette is enlarged, though stable. No significant pulmonary vascular congestion. Tortuosity of the descending thoracic aorta is again seen. Density overlying the peripheral aspect of the lungs bilaterally is felt to simply relate to overlying soft tissue. The lungs are otherwise clear. No pleural effusion. No pneumothorax. No acute osseous abnormality. IMPRESSION: Opacities overlying the peripheral aspect of the lungs bilaterally felt to relate to overlying soft tissues. Cardiomegaly without overt congestive heart failure. Interval placement of a loop recorder overlying left chest. Dictated by: Dictated on workstation # [id number]
[2020-02-29 14:56] VITALS: BP 123/85
== END 2020-02-29 14:56 | disposition home or self-care (01) ==
LOC: EDUNIT# 12:23 → ER 12:24
DX: U07.1 COVID-19 (principal); I25.2 Old myocardial infarction; I10 Essential (primary) hypertension; K21.9 Gastro-esophageal reflux disease without esophagitis
CPT/HCPCS: 71045; 80053; 83605; 84145; 85025; 85379; 85610; 85730; 86141; 87040; 87430; 87804; 99284; U0002; 36415; 87635

== ENCOUNTER 2020-03-15 05:33 | Outpatient (RCR) | payer BC ==
[~2020-03-15] VITALS: Ht 177.8 cm; Wt 123.2 kg
[~2020-03-15 05:33] MED LIST changes: +DEXA6TAB PO
== END 2020-03-15 09:46 | disposition home or self-care (01) ==
LOC: PREOP 05:33
PROVIDERS: ATTEND Surgery
DX: Z01.812 Encounter for preprocedural laboratory examination (principal); Z20.828 Contact with and (suspected) exposure to other viral communicable diseases
CPT/HCPCS: 87635

== ENCOUNTER 2020-03-17 09:34 | Day surgery (SDC) | payer BC ==
[~2020-03-17] VITALS: Ht 177.8 cm; Wt 123.2 kg
[2020-03-17] MEDS ORDERED: LACTATED RINGERS 1,000 ML IV ONE (09:38)
[2020-03-17] MEDS ORDERED: LACTATED RINGERS 1,000 ML IV STA (09:41)
[2020-03-17] MEDS ORDERED: HURRICAINE EXT TUBE (BENZOCAINE) XX PRN (09:45)
[2020-03-17] MEDS ORDERED: LIDOCAINE JELLY 2% 6 ML SYRINGE MM PRN (09:45)
[2020-03-17 09:54] VITALS: BP 142/100
[2020-03-17] MEDS ORDERED: MIDAZOLAM 2 MG/2 ML (VERSED) VIAL ONE (10:13)
[2020-03-17] MEDS ORDERED: PROPOFOL INJECTION 50 ML IV ONE ×2 (10:13→10:29)
[2020-03-17] MEDS ORDERED: HURRICAINE EXT TUBE (BENZOCAINE) ONE (10:14)
--- NOTE | 2020-03-17 10:18 | Progress Note-Pre Operative ---
Pre-Operative Progress Note H&P Reviewed The H&P was reviewed, patient examined and no changes noted. Date Seen by Provider: Mar 17, 2020 Time Seen by Provider: : Date H&P Reviewed: Mar 17, 2020 Time H&P Reviewed: : Pre-Operative Diagnosis: dysphagia, screening o PATRICIA MANTILLA MD Mar 17, 2020 10:18
[2020-03-17] MEDS ORDERED: PANT40TA2 PO (10:19)
--- NOTE | 2020-03-17 10:19 | Discharge Inst-Surgical ---
D/C Lap Instructions-ANNALEE New, Converted, or Re-Newed RX: RX on Chart Follow Up Activity as tolerated High Fiber Diet 25g or more per day Avoid Alcohol, Caffeine, Spicy [place] and Acid foods. Drink 64 fluid oz or more of fluids per day. Symptoms to Report: Fever over 101 degree F, Nausea/Vomiting If any problems/questions: Contact your physician or go to Emergency Room PATRICIA MANTILLA MD Mar 17, 2020 10:19
[2020-03-17] MEDS ORDERED: LIDOCAINE JELLY 2% 6 ML SYRINGE ONE (10:22)
[2020-03-17] MEDS ORDERED: HYDROcodone/APAP 5 MG/325 MG (LORTAB) TAB PO PRN (10:30)
[2020-03-17] MEDS ORDERED: ONDANSETRON 4 MG/2 ML (SDV) Z0FRAN IVP PRN (10:30)
[2020-03-17] MEDS ORDERED: ACETAMINOPHEN 325 MG TABLET PO PRN (10:30)
[2020-03-17] MEDS ORDERED: morphine INJ 10 MG/ML 1ML (SYR OR VIAL) IVP PRN ×2 (10:30)
[2020-03-17 10:55] VITALS: BP 112/59
[2020-03-17 11:00] VITALS: BP 123/55
[2020-03-17 11:20] VITALS: BP 120/84
[2020-03-17 11:40] VITALS: BP 120/84
--- NOTE | 2020-03-17 12:50 | Progress Note-Post Operative ---
Post-Operative Progess Note Surgeon (s)/Communications Maintainer (s) Surgeon PATRICIA MANTILLA MD Communications Maintainer: none Pre-Operative Diagnosis dysphagia, screening colo Post-Operative Diagnosis reflux esophagitis(stage 2), mild distal esophageal stricture, moderate gastritis. mild chronic stage 2 ext and int hemorrhoids, mild sigmoid diverticulosis. Procedure & Operative Findings Date of Procedure 03/17/20 Procedure Performed/Findings EGD with bx and balloon dilatation. Colonoscopy. Anesthesia Type mac Estimated Blood Loss Estimated blood loss (mL): minimal Specimens/Packing Specimens Removed ge jxn, antrum PATRICIA MANTILLA MD Mar 17, 2020 12:50
--- NOTE | 2020-03-17 13:44 | OPERATIVE REPORT ---
DATE OF SERVICE: 03/17/2020 ATTENDING PRIMARY CARE PHYSICIAN: Debbi Francois DO PREOPERATIVE DIAGNOSES: Gastroesophageal reflux disease, dysphagia, screening colonoscopy. POSTOPERATIVE DIAGNOSES: Reflux esophagitis stage II, mild distal esophageal stricture. No significant hiatal hernia, mild to moderate gastritis. No distal obstructions. Mild chronic stage II external and internal hemorrhoids, mild sigmoid diverticulosis. PROCEDURE: EGD with biopsy and balloon dilatation, colonoscopy. SURGEON: Patricia Mantilla MD ANESTHESIA: Monitored anesthesia care. ESTIMATED BLOOD LOSS: Minimal. FINDINGS: Reflux esophagitis stage II, mild distal esophageal stricture. No significant hiatal hernia, mild to moderate gastritis. No distal obstructions. Mild chronic stage II external and internal hemorrhoids, mild sigmoid diverticulosis. DISPOSITION: The patient tolerated the procedure well. INDICATIONS: The patient is a 49-year-old male in need of a screening colonoscopy as well as EGD for gastroesophageal reflux disease as well as dysphagia. He did have a colonoscopy approximately 10 years ago and believes this to be normal. He does not report any family history of colon cancer. He states that he does notice small amounts of self-limited blood per rectum on occasion. He also does report that he does have issues with dysphagia and will feel epigastric pressure sensation after food bolus and also does have reflux and regurgitation at night. DESCRIPTION OF PROCEDURE: The patient was brought to the endoscopy suite, laid in the left lateral decubitus position. After adequate IV pain and sedative medications and monitored anesthesia care, the mouthpiece was applied. The endoscope was then placed in the mouth, visualizing the pharynx and hypopharyngeal region. Vocal cords, epiglottis and vallecula identified and appeared to be normal. The endoscope was then gently intubated. Esophageal opening and esophagus insufflated. The endoscope was then advanced through the first, second and third portion of esophagus at the level of the GE junction, a reflux esophagitis stage II identified. There were no ulcers or strictures identified in this region. The endoscope was then gently abated the esophageal opening and esophagus insufflated. The endoscope was then advanced to the first, second and third portion of esophagus at the level of the GE junction, reflux esophagitis stage II identified. There was also mild distal esophageal stricture. A biopsy was taken with forceps with visualization of good hemostasis. The endoscope was then advanced into the stomach and endoscope retroflexed and there was no significant hiatal hernia identified. There was a moderate severity gastritis. No formal ulcerations, polyps, or any neoplasms. A biopsy was taken of the antrum to rule out H. pylori with visualization of good hemostasis. The endoscope was then advanced to the pylorus and the first and second portion of the duodenum, which appeared normal with no distal obstructions. We then proceeded with balloon dilatation and the balloon was placed in the stomach and pulled back to the area of stricture and insufflated to 2, then 4 and then 6 atmospheres of pressure or 20 mm in luminal diameter with moderate resistance and left this in place for 60 seconds. The balloon was then desufflated and removed with visualization of good hemostasis as well as no mucosal tears. Endoscope was then slowly withdrawn while taking a second look and suctioning of residual air with no additional findings. We then proceeded with colonoscopy portion of procedure. Digital rectal examination was performed, which revealed mild chronic stage II external and internal hemorrhoids, not actively edematous nor inflamed and no bleeding. Normal sphincter tone was felt and there were no palpable masses. Prostate gland was palpable and appeared normal. The endoscope was then intubated and anus and rectum gently insufflated. The endoscope was then advanced to the valves of [place] rectum with no polyps or any neoplasms identified. We then proceeded through the sigmoid colon where a mild sigmoid diverticulosis identified. There were no mucosal inflammatory changes to indicate any active diverticulitis. The endoscope was then advanced to the remainder of the descending, transverse and ascending colon to the cecum. These segments were normal. There were no polyps or any neoplasms identified throughout the colon or rectum. The endoscope was then slowly withdrawn while taking a second look and suctioning of residual air with no additional findings. The patient tolerated the procedure well. We will recommend the necessary lifestyle and diet accommodation including small and more frequent meals, avoidance of eating at night as well as head elevation while lying supine. He also needs to avoid caffeinated beverages, spicy, greasy and acidic foods. We will also recommend a high fiber diet with at least 30 grams of fiber daily as well as significant amounts of water to promote soft stools on a daily basis. Job ID: [id number] DocumentID: [id number] Dictated Date: 03/17/2020 11:05:12 Accounts Payable Supervisor Date: 03/17/2020 13:43:54 Dictated By: PATRICIA MANTILLA MD
--- NOTE | 2020-03-17 14:22 | Anesthesia-General Post-Op ---
MAC Patient Condition Mental Status/LOC: Same as Preop Cardiovascular: Satisfactory Nausea/Vomiting: Absent Respiratory: Satisfactory Pain: Controlled Complications: Absent Post Op Complications Complications None Follow Up Care/Instructions Patient Instructions None needed. Anesthesiology Discharge Order Discharge Order Patient is doing well, no complaints, stable vital signs, no apparent adverse anesthesia problems. No complications reported per nursing. ROBERT CLEMENT CRNA Mar 17, 2020 14:22
== END 2020-03-17 11:40 | disposition home or self-care (01) ==
LOC: ENDO 09:34
PROVIDERS: ATTEND Surgery
DX: Z12.11 Encounter for screening for malignant neoplasm of colon (principal); K57.30 Diverticulosis of large intestine without perforation or abscess without bleeding; K64.1 Second degree hemorrhoids; K21.00 Gastro-esophageal reflux disease with esophagitis, without bleeding; K22.2 Esophageal obstruction; K29.00 Acute gastritis without bleeding; K29.70 Gastritis, unspecified, without bleeding; K29.50 Unspecified chronic gastritis without bleeding; I48.91 Unspecified atrial fibrillation; E03.9 Hypothyroidism, unspecified; E78.00 Pure hypercholesterolemia, unspecified; I10 Essential (primary) hypertension; E29.1 Testicular hypofunction; E78.5 Hyperlipidemia, unspecified; G47.33 Obstructive sleep apnea (adult) (pediatric); I71.4 Abdominal aortic aneurysm, without rupture; E66.9 Obesity, unspecified; Z68.38 Body mass index [BMI] 38.0-38.9, adult; Z79.01 Long term (current) use of anticoagulants; Z79.899 Other long term (current) drug therapy; Z99.89 Dependence on other enabling machines and devices
CPT/HCPCS: 88305

== ENCOUNTER → 2020-12-14 | Day surgery (SDC) | payer BC ==
[2020-12-14] VITALS (7 sets, daily range): BP systolic 106–123; BP diastolic 70–86
[~2020-12-14] VITALS: Ht 177 cm; Wt 121.0 kg
[~2020-12-14] MED LIST changes: +APIX5TAB PO; -DOCU-238 PO; +DOCU-26 PO; +FLEC100T PO; +HEParin (CATH LAB) 2,000 ML IV ONE; +LIDOCAINE 1% INJ 20 ML 20 ML VIAL ONE; +MIDAZOLAM 5 MG/5 ML (VERSED) VIAL ONE; +NS IV 1000 ML 1,000 ML IV SCH; +NS IV 1000 ML 1,000 ML ONE; -OMEP40CA27 PO; +OMEP40CA6 PO; +PANT40TA2 PO; +PATIENT MAY USE OWN MEDS, ALL PO SCH; +PRAV20TA3 PO; +THYR90TA12 PO; +fentaNYL INJ 100 MCG/2 ML AMP ONE
[2020-12-14] MEDS: NS IV 1000 ML 1,000 ML IV SCH ×2 (07:41→09:13)
[2020-12-14 07:43] LABS: HEMATOCRIT 47 % (40-54); HEMOGLOBIN 14.5 g/dL (13.3-17.7); MEAN CORPUSCULAR HEMOGLOBIN 28 pg (25-34); MEAN CORPUSCULAR HGB CONC 31 g/dL (32-36); MEAN CORPUSCULAR VOLUME 90 fL (80-99); MEAN PLATELET VOLUME 11.3 fL (9.0-12.2); PLATELET COUNT 265 10^3/uL (130-400); WHITE BLOOD COUNT 8.8 10^3/uL (4.3-11.0)
[2020-12-14 07:58] LABS: PROTHROMBIN TIME PATIENT 13.9 SEC (12.2-14.7)
[2020-12-14 08:03] LABS: ALANINE AMINOTRANSFERASE 16 U/L (0-55); ALBUMIN 3.7 GM/DL (3.2-4.5); ALKALINE PHOSPHATASE 57 U/L (40-136); BILIRUBIN,TOTAL 0.5 MG/DL (0.1-1.0); BUN/CREATININE RATIO 5; CALCIUM 8.3 MG/DL (8.5-10.1); CARBON DIOXIDE 26 MMOL/L (21-32); CHLORIDE 105 MMOL/L (98-107); CHOLESTEROL 208 MG/DL (< 200); CREATININE SERUM 2.09 MG/DL (0.60-1.30); GFR ESTIMATED 34; GLUCOSE 89 MG/DL (70-105); HDL CHOLESTEROL < 15 MG/DL (40-60); POTASSIUM 4.3 MMOL/L (3.6-5.0); SODIUM 139 MMOL/L (135-145); TOTAL PROTEIN 6.9 GM/DL (6.4-8.2); TRIGLYCERIDES 666 MG/DL (<150)
--- NOTE | 2020-12-14 09:17 | Cardiac Procedure Note-CS/ASA ---
Pre-Procedure Note Pre-Op Procedure Note H&P Reviewed The H&P was reviewed, patient examined and no changes noted. Date H&P Reviewed: Dec 14, 2020 Time H&P Reviewed: 09:16 Conscious Sedation Pre-Proced Time 09:16 ASA Score 3, 4 For ASA 3 and 4: Consider anesthesia and medical clearance. Also, for patients with a history of failed moderate sedation consider anesthesia. Airway Lungs Heart ASA score ASA 1: a normal healthy patient ASA 2: a patient with a mild systemic disease (mid diabetes, controlled hypertension, obesity ASA 3: a patient with a severe systemic disease that limits activity (angina, COPD, prior Myocardial infarction) ASA 4: a patient with an incapacitating disease that is a constant threat to life (CHF, renal failure) ASA 5: a moribund patient not expected to survive 24 hrs. (ruptured aneurysm) ASA 6: a declared brain- patient whose organs are being harvested. For emergent operations, add the letter E after the classification Mallampati Classification Grade 3 Sedation Plan Analgesia, Amnesia, Plan communicated to team members, Discussed options with patient/fam, Discussed risks with patient/fam The patient is an appropriate candidate to undergo the planned procedure, sedation, and anesthesia. The patient immediately re-assessed prior to indication. ARTEMIO COATS MD FACP [facility] Dec 14, 2020 09:17
--- NOTE | 2020-12-14 10:02 | Discharge Inst-Cardiology ---
Discharge Inst-Cardiac Discharge Medications Continued Medications: Apixaban (Eliquis) 5 Mg Tablet 5 MG PO BID, TAB Cyanocobalamin (Cyanocobalamin Injection) 1,000 Mcg/Ml Inj 1000 MCG IM SUN, MCG Doxycycline Hyclate (Doxycycline Hyclate) 50 Mg Capsule 50 MG PO HS Flecainide Acetate (Flecainide Acetate) 100 Mg Tablet 100 MG PO BID, TAB Metoprolol Succinate (Metoprolol Succinate) 100 Mg Tab.er.24h 100 MG PO DAILY, TAB Omeprazole (Omeprazole) 40 Mg Capsule.dr 40 MG PO BID, CAP Pravastatin Sodium (Pravastatin Sodium) 20 Mg Tablet 20 MG PO DAILY, TAB Testosterone Cypionate (Testosterone Cypionate) 200 Mg/1 Ml Vial 200 MG IM SUN, MG Thyroid,Pork (Taper [employer] Thyroid) 90 Mg Tablet 90 MG PO DAILY, TAB ARTEMIO COATS MD FACP [facility] Dec 14, 2020 10:02
--- NOTE | 2020-12-14 10:02 | Discharge Inst-Post CATH ---
Discharge Inst-CATH/EP Post Cardiac Cath/EP D/C Inst Follow Up/Plan F/u with Dr Méndez in 2-3 weeks ACTIVITY * Go Home directly and rest. * Limit activity of the leg (or wrist if it was used) for 7 days including aerobics, swimming, jogging, bicycling, etc. * Restrict stair-climbing for 7 days if possible, if not, climb up with your non-cath leg, then bring together on the same step. * Avoid lifting, pushing, pulling or excessive movement of the affected extremity for 7 days. * Customary sexual activity may be resumed after 2 days-use caution not to use a position that strains or causes pain to the affected extremity. * No driving for 24 hours. * NO SMOKING. * Avoid straining for bowel movements for 7 days. * Gentle walking on level ground is allowed. * Returning to work will depend on the type of procedure and the results. Your doctor will discuss this with you. CALL YOUR DOCTOR FOR ANY OF THE FOLLOWING: *If bleeding from the puncture site occurs- Apply gentle pressure to site with clean cloth and call your doctor or EMS. * If a knot or lump forms under the skin, increases in size, or causes pain. * If bruising appears to be worsening or moving further down your leg instead of disappearing. * Temperature above 101 F. CARE OF YOUR GROIN INCISION; * Bruising or purple discoloration of the skin near the puncture site is common. * You may shower only, no bathtub bathing for 5 days. Be careful to avoid slipping as your leg may feel stiff. * If a closure device was used on your femoral artery, please see the attached guide regarding care of the device and your leg. * Leave dressing on FOR 24 hours. CARE OF YOUR WRIST INCISION; * Bruising or purple discoloration of the skin near the puncture site is common. * You may shower. * DO NOT submerge wrist. * Leave dressing on FOR 24 hours. ARTEMIO MÉNDEZ MD [facility] CCDS Dec 14, 2020 10:02
--- NOTE | 2020-12-14 17:17 | CARDIAC CATHETERIZATION ---
DATE OF SERVICE: 12/14/2020 CARDIAC CATHETERIZATION REPORT The patient is a 50-year-old gentleman, who has a history of atrial fibrillation. ____ loop recorder has recently demonstrated episodes of wide complex tachycardia. Cardiac catheterization was recommended to evaluate for any significant coronary artery disease. The patient does have chronic kidney disease, stage III to IV. Vigorous perioperative hydration was carried out starting well before the procedure, continued through the procedure and intended to continue for several hours following the procedure. We did explain to him his additional risk of contrast nephropathy from the contrast used for cardiac catheterization, given his baseline renal insufficiency. He understood all of these issues and questions were answered and he provided informed consent. DESCRIPTION OF PROCEDURE: He was brought to the cardiac catheterization laboratory in a fasting state. Right groin was prepared and draped in the usual sterile fashion. Lidocaine 1% was used for local anesthesia. Modified Seldinger technique was used to advance a 5-Malaysian sheath into the right femoral artery. A 5-Malaysian JL4 catheter was used for left coronary angiography, 5-Malaysian JR4 catheter was used for right coronary angiography. A 5-Malaysian pigtail catheter was used for left heart catheterization. Left ventricular angiography was not performed to conserve contrast. HEMODYNAMICS: Left ventricular end-diastolic pressure following coronary angiography was approximately 14 mmHg. There is no significant pressure gradient on pullback across the aortic valve. Ascending aortic pressure was 116/62 with a mean 84 mmHg. CORONARY ANGIOGRAPHY: Left main coronary artery from the left anterior descending artery, left circumflex artery, right coronary artery are angiographically normal. Right coronary artery is dominant. CONCLUSIONS: 1. No angiographically significant coronary artery disease. 2. Left ventricular end-diastolic pressure at the top limit of normal to mildly elevated. DISCUSSION AND RECOMMENDATIONS: Continuing outpatient follow up is advised. A referral has been made for electrophysiology evaluation with Dr. Felix in [place]. Job ID: [id number] DocumentID: [id number] Dictated Date: 12/14/2020 09:54:42 Chassis Driver Date: 12/14/2020 11:23:57 Dictated By: ARTEMIO COATS MD, MA, FACP, FACC,
== END ==
LOC: CATH 09:00
PROVIDERS: ATTEND Internal Medicine Cardiovascular Disease
DX: I48.0 Paroxysmal atrial fibrillation (principal); G47.33 Obstructive sleep apnea (adult) (pediatric); E66.9 Obesity, unspecified; J45.909 Unspecified asthma, uncomplicated; I12.9 Hypertensive chronic kidney disease with stage 1 through stage 4 chronic kidney disease, or unspecified chronic kidney disease; N18.30 Chronic kidney disease, stage 3 unspecified; E78.00 Pure hypercholesterolemia, unspecified; E03.9 Hypothyroidism, unspecified; I51.7 Cardiomegaly; I71.4 Abdominal aortic aneurysm, without rupture; I47.2 Ventricular tachycardia; Z79.01 Long term (current) use of anticoagulants; Z79.899 Other long term (current) drug therapy
CPT/HCPCS: 80053; 80061; 85027; 85610; 85730; 87081; 93306; 93458; C1760; C1894; 36415

== ENCOUNTER → 2021-05-31 | Outpatient (CLI) | payer BC ==
[~2021-05-31] MED LIST changes: -HEParin (CATH LAB) 2,000 ML IV ONE; -LIDOCAINE 1% INJ 20 ML 20 ML VIAL ONE; -MIDAZOLAM 5 MG/5 ML (VERSED) VIAL ONE; -NS IV 1000 ML 1,000 ML IV SCH; -NS IV 1000 ML 1,000 ML ONE; -PATIENT MAY USE OWN MEDS, ALL PO SCH; -fentaNYL INJ 100 MCG/2 ML AMP ONE
--- NOTE | 2021-05-31 17:24 | Diagnostic Imaging Report ---
INDICATION: Cough. TIME OF EXAM: 5:01 PM Correlation is made with prior chest from 09/18/2012. Heart size is normal. Cardiac loop recorder overlies the heart. The lungs are clear. No infiltrates are seen. There is no effusion or pneumothorax. IMPRESSION: No acute cardiopulmonary process is detected. Dictated by: Dictated on workstation # [id number]
== END ==
LOC: RAD 16:30
PROVIDERS: ATTEND Family Medicine
DX: R05.9 Cough, unspecified (principal); R09.81 Nasal congestion; Z20.822 Contact with and (suspected) exposure to COVID-19
CPT/HCPCS: 71046

== ENCOUNTER 2021-06-22 05:20 | Emergency (ER) | payer BC ==
[2021-06-22] MEDS ORDERED: ASPIRIN 81 MG CHEW (CHILDREN'S ASA) PO ONE (05:45)
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
[2021-06-22 05:58] LABS: BASOPHILS % (AUTO) 1 % (0-10); EOSINOPHILS # (AUTO) 0.2 10^3/uL (0.0-0.3); EOSINOPHILS % (AUTO) 3 % (0-10); HEMATOCRIT 44 % (40-54); HEMOGLOBIN 13.6 g/dL (13.3-17.7); LYMPHOCYTES # (AUTO) 1.6 10^3/uL (1.0-4.0); LYMPHOCYTES % (AUTO) 28 % (12-44); MEAN CORPUSCULAR HEMOGLOBIN 26 pg (25-34); MEAN CORPUSCULAR HGB CONC 31 g/dL (32-36); MEAN CORPUSCULAR VOLUME 85 fL (80-99); MEAN PLATELET VOLUME 10.7 fL (9.0-12.2); MONOCYTES # (AUTO) 0.7 10^3/uL (0.0-1.0); MONOCYTES % (AUTO) 13 % (0-12); NEUTROPHILS # (AUTO) 3.1 10^3/uL (1.8-7.8); NEUTROPHILS % (AUTO) 55 % (42-75); PLATELET COUNT 221 10^3/uL (130-400); WHITE BLOOD COUNT 5.8 10^3/uL (4.3-11.0)
[2021-06-22 06:05] LABS: ALBUMIN 3.6 GM/DL (3.2-4.5)
[2021-06-22 06:06] LABS: CALCIUM 8.4 MG/DL (8.5-10.1)
[2021-06-22 06:07] LABS: TOTAL PROTEIN 6.7 GM/DL (6.4-8.2)
[2021-06-22 06:09] LABS: BILIRUBIN,TOTAL 0.5 MG/DL (0.1-1.0)
[2021-06-22 06:11] LABS: CREATININE SERUM 1.4 MG/DL (0.60-1.30)
--- NOTE | 2021-06-22 06:11 | Diagnostic Imaging Report ---
INDICATION: S/P CARDIAC ABLATION; L SHOULDER PAIN COMPARISON: 05/31/2021 FINDINGS: Single frontal view of the chest demonstrates normal heart size and pulmonary vascularity. The lungs show low inspiratory volumes, but are otherwise clear. No large pleural effusion or pneumothorax is seen. The visualized osseous structures show no acute abnormalities. IMPRESSION: 1. No acute cardiopulmonary process. Dictated by: Dictated on workstation # [id number]
--- NOTE | 2021-06-22 06:13 | Diagnostic Imaging Report ---
INDICATION: Left shoulder pain. FINDINGS: 3 views. Glenohumeral joint and AC joint are in good alignment. The articulating surface of the glenoid and humerus are smooth. There are no fractures. There are hypertrophic changes of the AC joint. There is considerable calcification in the region of the supraspinatus tendon. IMPRESSION: Calcific tendinosis of the supraspinatus tendon. Degenerative arthritic changes AC joint. Dictated by: Dictated on workstation # [id number]
[2021-06-22 06:14] LABS: MAGNESIUM 1.8 MG/DL (1.6-2.4)
[2021-06-22 06:31] LABS: INR 0.9 (0.8-1.4)
[2021-06-22] MEDS ORDERED: ORPHENADRINE 60 MG/2 ML (NORFLEX) AMP (ED ONLY) IV ONE (07:00)
[2021-06-22] MEDS ORDERED: morphine INJ 10 MG/ML 1ML (SYR OR VIAL) IVP STA (07:00)
[2021-06-22] MEDS ORDERED: DOFETILIDE 125 MCG (TIKOSYN) CAPSULE PO STA (08:35)
[2021-06-22] MEDS ORDERED: OXYC1TAB87 PO (09:19)
[2021-06-22] MEDS ORDERED: METH4TAB10 PO (09:19)
[2021-06-22 09:26] VITALS: BP 149/107
[2021-06-22] MEDS ORDERED: oxyCODONE/APAP 7.5-325 MG (PERCOCET 7.5) TABLET PO ONE (09:30)
== END 2021-06-22 09:43 | disposition home or self-care (01) ==
LOC: EDUNIT# 05:20 → ER 05:22
DX: M77.8 Other enthesopathies, not elsewhere classified (principal); G47.30 Sleep apnea, unspecified; I10 Essential (primary) hypertension; E66.9 Obesity, unspecified; I25.2 Old myocardial infarction; I48.91 Unspecified atrial fibrillation; E78.00 Pure hypercholesterolemia, unspecified; K21.9 Gastro-esophageal reflux disease without esophagitis; Z68.38 Body mass index [BMI] 38.0-38.9, adult; Z79.01 Long term (current) use of anticoagulants; Z79.899 Other long term (current) drug therapy
CPT/HCPCS: 36415; 71045; 73030; 80053; 82150; 83690; 83735; 83880; 84484; 85025; 85610; 85730; 93005; 93041

== ENCOUNTER → 2021-07-13 | Outpatient (CLI) | payer BC ==
[~2021-07-13] VITALS: Ht 178 cm; Wt 122.0 kg
[~2021-07-13] MED LIST changes: +GADOBUTROL 7.5 MMOL/7.5 ML (GADAVIST) VIAL IV ONE; +GADOTERATE 0.5 MMOL/ML (CLARISCAN) 5 ML VIAL IV ONE; +IOHEXOL 300 MG/ML 50 ML (OMNIPAQUE 300) VIAL IV ONE; +IOHEXOL 350 MG/ML 100 ML (OMNIPAQUE 350) VIAL IV ONE; +METH4TAB10 PO; +OXYC1TAB87 PO
--- NOTE | 2021-07-13 10:43 | Diagnostic Imaging Report ---
Indication: Left shoulder pain. Patient brought to the fluoroscopy suite placed on table in the supine position. Left shoulder was prepped and draped in usual sterile fashion. Small amount of 1% lidocaine was utilized for local anesthesia. 21-gauge needle was advanced into left shoulder and placed with its tip at the rotator interval. A 15 mm solution of iodinated contrast, normal saline and gadolinium was injected under fluoroscopic observation. 15 seconds fluoroscopic time was utilized. 2 images were obtained. Patient tolerated the procedure well and was sent to MRI in satisfactory condition. IMPRESSION: Successful left shoulder injection of gadolinium contrast solution, using fluoroscopy. Dictated by: Dictated on workstation # [id number]
--- NOTE | 2021-07-13 10:44 | Diagnostic Imaging Report ---
EXAMINATION: Magnetic resonance imaging of the left shoulder with intra-articular contrast. DATE: July 13, 2021. COMPARISON: MRI left shoulder December 14, 2016. HISTORY: 51-year-old male, left shoulder injury in 2017 with persistent pain, increasing recently. TECHNIQUE: Magnetic Resonance Imaging sequences were performed of the shoulder following the intra-articular administration of contrast. FINDINGS: ROTATOR CUFF, LIGAMENTS, TENDONS, AND MUSCLES: There is abnormal low signal in the supraspinatus tendon, consistent with calcific tendinitis. The supraspinatus tendon is otherwise intact. The infraspinatus, teres minor, and subscapularis tendons are intact. There is prominent edema in the supraspinatus muscle. There is minimal edema in the infraspinatus muscle. There is normal muscle bulk. LONG HEAD OF BICEPS: The proximal long head of the biceps tendon extends to the lower margin of the bicipital groove and is not present in the intra-articular segment or within the bicipital groove. The proximal long head of the biceps tendon is most likely torn and retracted to the level of the lower aspect of the bicipital groove. GLENOHUMERAL JOINT: The humeral head is well positioned relative to the glenoid. The labrum is intact. There is no identified paralabral cyst. The articular cartilage is grossly intact. There is no intra-articular body or prominent synovitis. ACROMIOCLAVICULAR JOINT: The acromioclavicular joint is normally aligned. The coracoclavicular and coracoacromial ligaments are intact. There are mild acromioclavicular degenerative changes with 1 to 2 mm undersurface osteophytes. BONE: There is no os acromiale. There is no Hill-Sachs deformity. There is no acute fracture, bone contusion, or evidence of osteonecrosis. BURSAE AND SOFT TISSUES: The bursae and soft tissue surrounding the shoulder are unremarkable. IMPRESSION: 1. Calcific tendinitis of supraspinatus. Negative for rotator cuff tendon tear. 2. Prominent edema in the supraspinatus muscle and minimal edema in the infraspinatus muscle without fatty muscle atrophy. Differential diagnostic considerations would include early denervation related signal changes, nonspecific myositis, and/or low-grade muscle strains. 3. Tear of the proximal long head of the biceps tendon which is retracted to the lower margin of the bicipital groove. 4. Mild acromioclavicular degenerative changes with 1 to 2 mm undersurface osteophytes. 5. Grossly intact labrum and unremarkable additional glenohumeral joint assessment. 6. No acute fracture, bone contusion, or evidence of osteonecrosis. Dictated by: Dictated on workstation # [id number]
== END ==
LOC: RAD 09:00
PROVIDERS: ATTEND Nurse Practitioner
DX: M75.122 Complete rotator cuff tear or rupture of left shoulder, not specified as traumatic (principal); S46.112A Strain of muscle, fascia and tendon of long head of biceps, left arm, initial encounter; M19.012 Primary osteoarthritis, left shoulder; M25.712 Osteophyte, left shoulder; M62.89 Other specified disorders of muscle
CPT/HCPCS: 23350; 73040; 73222

== ENCOUNTER → 2021-12-13 | Outpatient (CLI) | payer BC ==
[~2021-12-13] MED LIST changes: -GADOBUTROL 7.5 MMOL/7.5 ML (GADAVIST) VIAL IV ONE; -GADOTERATE 0.5 MMOL/ML (CLARISCAN) 5 ML VIAL IV ONE; -IOHEXOL 300 MG/ML 50 ML (OMNIPAQUE 300) VIAL IV ONE; -IOHEXOL 350 MG/ML 100 ML (OMNIPAQUE 350) VIAL IV ONE
--- NOTE | 2021-12-13 12:09 | Diagnostic Imaging Report ---
PROCEDURE: CT abdomen and pelvis without contrast. TECHNIQUE: Multiple contiguous axial images were obtained through the abdomen and pelvis without the use of intravenous contrast. Auto Exposure Controls were utilized during the CT exam to meet ALARA standards for radiation dose reduction. INDICATION: New diagnosis of prostate cancer. COMPARISON: I have no relevant comparison. FINDINGS: The lung bases are clear. There are no suspicious sclerotic or lytic bony lesions. There is no evidence for fracture. The liver, gallbladder, bile ducts, spleen, adrenals, and pancreas are unremarkable. The kidneys are unobstructed, nonfocal, and nonacute. No radiopaque urolithiasis. The aorta is nonaneurysmal. There is no abdominal, mesenteric, or periaortic retroperitoneal lymphadenopathy. The inguinal canals show no suspicious lymph node or hernia. No pathologically enlarged lymph nodes along the pelvic sidewalls or iliac chains. There is no bowel obstruction. There are a few noninflamed diverticula. The prostate, seminal vesicles, and urinary bladder appear nonfocal at this uninfused CT. IMPRESSION: No findings to suggest soft tissue or osseous metastatic disease. No acute appearing abnormality is identified. Dictated by: Dictated on workstation # [id number]
--- NOTE | 2021-12-13 14:41 | Diagnostic Imaging Report ---
INDICATION: 51-year-old male, prostate cancer. TECHNIQUE: The patient was administered 26.1 mCi technetium-99m MDP intravenously. Anterior and posterior whole-body planar images are obtained. CORRELATION STUDY: None. FINDINGS: Bony calvarium is unremarkable. Bilateral shoulder girdles are symmetric. Slightly heterogeneous uptake about the ribs without discrete asymmetry. Exception is there is slight asymmetric uptake which is superimposed over the expected location of the costochondral articulation at approximately the right fourth to fifth rib. Asymmetric uptake questioned over the mid sternal body. The spine including sacrum is unremarkable. Bilateral hemipelves are unremarkable. Lower extremities demonstrate mild degenerative uptake about the knees. Physiologic uptake by the kidneys with excretion into the urinary bladder. IMPRESSION: 1. Questionable, subtle asymmetric uptake about the mid sternal body as well as at potentially costochondral margin anteriorly at the right fourth to fifth rib. Metastatic disease is considered doubtful, but attention at follow-up is recommended. Dictated by: Dictated on workstation # [id number]
== END ==
LOC: CARD 11:00
PROVIDERS: ATTEND Urology
DX: C61 Malignant neoplasm of prostate (principal)
CPT/HCPCS: 74176; 78306; A9503

== ENCOUNTER 2021-12-19 08:40 | Outpatient (RCR) | payer BC | END 2022-01-18 | disposition home or self-care (01) | LOC: ONC 08:40 | PROVIDERS: ATTEND Radiology Radiation Oncology | DX: C61 Malignant neoplasm of prostate (principal); E78.00 Pure hypercholesterolemia, unspecified; E03.9 Hypothyroidism, unspecified; K21.9 Gastro-esophageal reflux disease without esophagitis; N18.30 Chronic kidney disease, stage 3 unspecified; I48.91 Unspecified atrial fibrillation | CPT/HCPCS: 99204 ==

== ENCOUNTER → 2022-02-22 | Outpatient (CLI) | payer BC ==
[~2022-02-22] MED LIST changes: +RT-ALBUTEROL SULF 2.5 MG/3 ML PRE-MIX VIAL INH ONE
== END ==
LOC: RT 07:38
PROVIDERS: ATTEND Family Medicine
DX: R06.00 Dyspnea, unspecified (principal)
CPT/HCPCS: 94060; 94726; 94729

== ENCOUNTER → 2022-05-10 | Outpatient (CLI) | payer BC ==
[~2022-05-10] MED LIST changes: -RT-ALBUTEROL SULF 2.5 MG/3 ML PRE-MIX VIAL INH ONE
== END ==
LOC: CARD 09:58
PROVIDERS: ATTEND Internal Medicine Cardiovascular Disease
DX: I51.7 Cardiomegaly (principal); I47.29 Other ventricular tachycardia
CPT/HCPCS: 93306

== ENCOUNTER → 2023-02-27 | Outpatient (CLI) | payer BC ==
--- NOTE | 2023-02-27 19:06 | Diagnostic Imaging Report ---
PROCEDURE: MRI lumbar spine. TECHNIQUE: Multiplanar, multisequence MRI of the lumbar spine was performed without contrast. DATE: February 27, 2023. COMPARISON: CT abdomen and pelvis December 13, 2021. INDICATION: 52-year-old male, low back pain. FINDINGS: The alignment of the lumbar spine is unremarkable. There is no evidence of a diffuse marrow infiltrating or replacing process. There is no focal concerning bone lesion, compression deformity, or fracture. The visualized cord and conus medullaris is unremarkable and terminates at the T12 level. There is mild to moderate disc height loss at L3-L4 and L4-L5. There are Modic endplate degenerative related changes adjacent to the L3-L4 disc space. L1-L2: There is no disc bulge. The facet joints and ligamentum flavum are unremarkable. There is no foraminal narrowing. There is no spinal canal stenosis. L2-L3: There is no disc bulge. The facet joints and ligamentum flavum are unremarkable. There is no foraminal narrowing. There is no spinal canal stenosis. L3-L4: There is mild diffuse disc bulge. There is very mild narrowing of the right lateral recess. The facet joints and ligamentum flavum are unremarkable. There is mild bilateral foraminal narrowing. There is no spinal canal stenosis. L4-L5: There is a broad-based posterior disc protrusion eccentric to the left with contact of the descending left L5 nerve root. There is moderate narrowing of the left lateral recess. The facet joints and ligamentum flavum are unremarkable. There is moderate left foraminal narrowing. There is mild to moderate spinal canal stenosis. L5-S1: There is no disc bulge. There are right facet degenerative changes. There is no foraminal narrowing. There is no spinal canal stenosis. IMPRESSION: 1. Disc and facet degenerative changes of the lumbar spine, as described level by level above. Findings are most notable at L4-L5 and L3-L4. 2. No identified focal concerning bone lesion, compression deformity, or fracture. Dictated by: Dictated on workstation # [id number]
--- NOTE | 2023-02-27 19:15 | Diagnostic Imaging Report ---
INDICATION: Chronic back pain. Thoracic statures within normal limits and the alignment is unremarkable. There is no thoracic spinal marrow edema. No fracture deformity. No paravertebral mass, hemorrhage or fluid collection. No ligamentous disruption. The thoracic spinal cord has a normal volume and normal morphology and a normal signal intensity. No acute epidural pathology. No substantial canal stenosis. There are degenerative changes to the discs, endplates and facets throughout but no high-grade foraminal stenosis. No acute-appearing abnormality. No compression deformity. IMPRESSION: Degenerative changes aligned anatomically with normal spinal cord and no substantial degree of stenosis, edema or acute abnormalities. Dictated by: Dictated on workstation # [id number]
== END ==
LOC: RAD 12:57
PROVIDERS: ATTEND Family Medicine
DX: M51.34 Other intervertebral disc degeneration, thoracic region (principal); M51.36 Other intervertebral disc degeneration, lumbar region; M47.816 Spondylosis without myelopathy or radiculopathy, lumbar region; M47.817 Spondylosis without myelopathy or radiculopathy, lumbosacral region; E03.8 Other specified hypothyroidism; M62.838 Other muscle spasm
CPT/HCPCS: 72146; 72148

== ENCOUNTER → 2023-03-20 | Outpatient (RCR) | payer BC | END | disposition home or self-care (01) | PROVIDERS: ATTEND Family Medicine | DX: M54.16 Radiculopathy, lumbar region (principal) ==

== ENCOUNTER 2023-04-17 09:04 | Outpatient (RCR) | payer BC | END 2023-04-19 | disposition home or self-care (01) | PROVIDERS: ATTEND Family Medicine | DX: M54.50 Low back pain, unspecified (principal) ==